=== PATIENT | male | born 1975 | race Caucasian/White ===

== ENCOUNTER 2019-06-21 10:50 | Inpatient (IN) | payer OTHER ==
[~2019-06-21] VITALS: Ht 165.1 cm; Wt 104.3 kg
[2019-06-21 14:05] VITALS: BP 145/89
--- NOTE | 2019-06-21 15:44 | NUR ---
WOUND CARE CONSULT; ROUNDING WITH DR NEELY AND NATACHA BSN. THIS 43 YEAR OLD MAN FROM A SKILLED UNIT CAME BY AMBULANCE RE; WOUNDS. HE HAS A WOUND TO THE RIGHT LAT CALF THAT IS MALODOROUS AND HAS NECROTIC TISSUE IN NEED OF DEBRIDEMENT. THERE ARE WOUNDS TO THE LEFT ISCHIAL TUBEROSITY, THE LEFT POSTERIOR THIGH AND THE LEFT SUPERIOR GLUTEAL AREA. DR NEELY IS COORDINATING A SURGICAL DEBRIDEMENT OF THE RIGHT POSTERIOR CALF. RECOMMENDATION; 1-DAKINS TO RIGHT LAT CALF 2-OPTIFOAM DRESSINGS T THE LEFT POST THIGH. 3-OPTTIFOAM DRESSING TO THELEFT I/T 4-AND OPRIFOAM TO THE LEFT SUPERIOR GLUTEAL AREA DISCUSSED WITH RN DISCUSSED WITH MALKA
[2019-06-21 16:03] LABS: ABSOLUTE NEUTROPHILS 5.6 thou/uL (1.4-8.2); BASOPHILS 0.9 % (0.0-2.0); EOSINOPHILS 2.3 % (0.0-3.0); HEMATOCRIT 27.7 % (42.0-52.0); HEMOGLOBIN 8.8 gm/dL (14.0-18.0); LYMPHOCYTES 15.2 % (24.0-44.0); MCH 27.3 pg (26.0-34.0); MCHC 31.7 g/dL (28.0-37.0); MCV 86.3 fL (80.0-100.0); MONOCYTES 8.8 % (1.0-8.0); PLATELET COUNT 179 thou/uL (150-400); POLYS 72.8 % (36.0-66.0); RBC 3.21 mil/uL (4.50-6.00); RDW 17.6 % (10.5-14.5); WBC 7.7 thou/uL (4.0-11.0)
[2019-06-21 16:17] LABS: ALBUMIN 2.5 g/dL (3.4-5.0); CALCIUM 9.1 mg/dL (8.5-10.1); CREATININE 3.7 mg/dL (0.7-1.3); POTASSIUM 4.4 mmol/L (3.5-5.1); TOTAL BILIRUBIN 0.2 mg/dL (<0.1-1.0); TOTAL PROTEIN 7.6 g/dL (6.4-8.2)
--- NOTE | 2019-06-21 19:57 | NUR ---
43 YO MALE DIRECTLY ADMITED TO 431 FROM OFFICE. PT IS A PARPLEGIC FROM SPINABIFIDA. WOUNDS TO R BUTTOCK, L INNER THIGH, R AND L LEG CHANGED AND PICTURES TAKEN. PIV LINE PLACED BY VASC TEAM TO R FA. FISTULA NOTED TO GOMEZ. UROSTOMY AND COLOSTOMY BAGS ARE INTAACT. ORIENTED PT TO ROOM/CALL LIGHT.
[2019-06-21 21:20] VITALS: BP 133/82
[2019-06-22 04:45] VITALS: BP 128/78
[2019-06-22 05:56] LABS: ABSOLUTE NEUTROPHILS 5.5 thou/uL (1.4-8.2); BASOPHILS 1.3 % (0.0-2.0); EOSINOPHILS 3.4 % (0.0-3.0); HEMATOCRIT 26.8 % (42.0-52.0); HEMOGLOBIN 8.4 gm/dL (14.0-18.0); LYMPHOCYTES 13.7 % (24.0-44.0); MCHC 31.4 g/dL (28.0-37.0); MCV 86.1 fL (80.0-100.0); MONOCYTES 7.7 % (1.0-8.0); PLATELET COUNT 170 thou/uL (150-400); POLYS 73.9 % (36.0-66.0); RBC 3.11 mil/uL (4.50-6.00); RDW 17.6 % (10.5-14.5); WBC 7.5 thou/uL (4.0-11.0)
[2019-06-22 06:04] LABS: CALCIUM 8.3 mg/dL (8.5-10.1); CREATININE 4.2 mg/dL (0.7-1.3); MAGNESIUM 1.8 mg/dL (1.8-2.4); POTASSIUM 4.5 mmol/L (3.5-5.1)
[2019-06-22 07:53] VITALS: BP 130/80
--- NOTE | 2019-06-22 07:59 | NUR ---
Assumed pt care at 1900. Pt is A/OX4,VSS. Requires max assist with transfers. Urostomy/colostomy bags changed. C/o pain to ulysses hips, medicated per EMAR with relief reported. Pt has been NPO since midnight. Resting quietly w/o distress noted will continue to monitor pt.
[2019-06-22 16:07] VITALS: BP 117/57
--- NOTE | 2019-06-22 16:18 | NUR ---
ASSESSMENT-PT LIVES IN LTC AT [facility]. PT HAS A HX OF SPINA BIFIDA AND IS WC BOUND. PT GOES TO [facility] FOR HEMODIALYSIS M- 0700 SHIFT. PT IS FOLLOWED BY WOUND CARE TEAM AT THE FACILITY. PT NEEDS ASSIST WITH ADLS. PT SAYS HIS SISTER RONEY HELPS HIM WITH HIS AFFAIRS. HE HAS ANOTHER SISTER ELMER IN [facility]. PT HAD I&D OF HIS WOUND DONE TODAY. FOLLOWING TO ASSIST WITH DC PLANNING.
[2019-06-22] MEDS ORDERED: VITAMIN C500 M2 (16:43)
[2019-06-22] MEDS ORDERED: FERROUS GLUCON324 M3 (16:44)
[2019-06-22] MEDS ORDERED: PROTONIX40 M1 (16:45)
[2019-06-22] MEDS ORDERED: RENAL-VITE TAB0.8 MG (16:46)
[2019-06-22] MEDS ORDERED: ZINC SULFATE 2220 MG (16:48)
[2019-06-22] MEDS ORDERED: RENVELA800 MG (16:50)
[2019-06-22] MEDS ORDERED: SODIUM BICARBO650 M3 (16:50)
[2019-06-22] MEDS ORDERED: TYLENOL325 MG PO (16:51)
[2019-06-22] MEDS ORDERED: CALCIUM 500 +1 EAC5 (16:54)
--- NOTE | 2019-06-22 18:45 | NUR ---
PT ASSESSED AT THIS AM. DIALYSIS THIS AM AND THEN WENT FOR WOUND DEBRIDEMENT. EATING AND DRINKING WELL. MEDS GIVEN. PAIN WELL CONTROLLED. PT TURNING HIMSELF. OSTOMY NURSE IN AND LEFT SUPPLIES.
--- NOTE | 2019-06-22 19:18 | HC ---
[place] [address] CONSULTATION Name: SEJALHILARIO III Room #: 431-P [facility] IN ..#: [id number] Admission: 06/21/19 Attend Phys: Kye Ma MD Discharge: Date of : 77 Report #: [id number] THIS REPORT FOR: //name// CC: Kye SANDS unknown DATE OF SERVICE: 06/21/2019 CHIEF COMPLAINT: Multiple pressure ulcerations. HISTORY OF PRESENT ILLNESS: This is a 43-year-old male patient with a history of spina bifida with multiple pressure ulcerations. He is a resident at [facility], was found to have an increasingly infected and foul-smelling ulceration on his right lateral lower leg, and he has been admitted for evaluation and treatment and aggressive wound care. The patient denies any pain associated with these. Denies current fever or chills. PAST MEDICAL HISTORY: Positive for history of spina bifida. He has a history of neuromuscular dysfunction and neurogenic bladder. He has functional paraplegia. He has end-stage renal disease, iron deficiency anemia and gastroesophageal reflux. SOCIAL HISTORY: He admits to occasional alcohol use. No history of smoking. ALLERGIES: To CEPHALOSPORINS, LATEX and PENICILLINS. MEDICATIONS: Include Tylenol, ondansetron, oxycodone, polyethylene glycol, sodium chloride and vancomycin. FAMILY HISTORY: Noncontributory. REVIEW OF SYSTEMS: CONSTITUTIONAL: The patient denies fever, chills or weight loss. NEUROLOGICAL: The patient has paraplegia and neurogenic bladder. ENT: The patient denies earache, nasal drainage, sore throat. CARDIOVASCULAR: The patient denies chest pain or palpitations or diaphoresis. PULMONARY: The patient denies cough or shortness of breath. GASTROINTESTINAL: The patient denies nausea, vomiting, diarrhea or abdominal pain. ORTHOPEDIC: The patient is aware of the pressure ulcerations, which we will detail below. Other systems in a 14-point review of systems are negative. PHYSICAL EXAMINATION: VITAL SIGNS: At this time include temperature 36.9, pulse 100, respiratory rate of 20, blood pressure 145/89. [address] [place] [address] CONSULTATION Name: HILARIO POST III Room #: 431-P [facility]#: [id number] Admission: 06/21/19 Attend Phys: Kye Ma MD Discharge: Date of : 77 Report #: [id number] GENERAL: This is a well-developed male patient who appears to be in minimal distress. HEENT: Head normocephalic. Nose and throat clear. NECK: Supple. LUNGS: Clear. ABDOMEN: Soft. EXTREMITIES: Examination of the pelvic region demonstrates what appears to be a stage 4 pressure ulcer in the left ischial tuberosity, is mostly sclerosed down, is a very small area that may remain open. It probes close to bone. He has stage 3 pressure ulceration of his left posterior thigh, was relatively healthy, clean, granulating and a very clean, healthy circular ulceration on his left medial lower leg. Additionally, the patient has a very small stage 3 pressure ulceration to the left superior gluteal cleft. He has a large ulceration that is linearly arranged on his right lateral lower leg. There is moderate necrotic tissue. It is foul smelling with drainage and odor. No exposed structures are palpable in the base. LABORATORY STUDIES: Include white blood cell count 7.7 with a hemoglobin of 8.8, hematocrit of 27.7. Sed rate is 128. Sodium 139, potassium 4.4, chloride 99, CO2 of 36, BUN 27, creatinine 3.7, alkaline phosphatase 209. Albumin is 2.5. CLINICAL IMPRESSION: 1. Stage 4 pressure ulceration, left ischial tuberosity, that appears to be almost closed; stage 3 pressure ulcerations, left posterior thigh, left medial lower leg and left gluteal cleft. 2. Stage 3 pressure ulceration to the right lateral lower leg. 3. Spina bifida with paraplegia and neurogenic bladder. 4. Wound infection, right lateral lower leg. 5. Moderate protein-calorie malnutrition. RECOMMENDATIONS: At this point in time, the patient was placed on empiric antibiotic therapy. He will need additional cultures to be taken at bedside today. The patient has been started on empiric vancomycin at present. We will recommend low air loss mattress with q.2 hour turning positioning, aggressive nutritional support. We will recommend a 0.25 strength Dakin's moist gauze dressing b.i.d. to the right lower leg. We will obtain surgical consultation for debridement and possible placement of a skin substitute to the right leg. All questions have been answered, and the patient is agreeable with the current plan of care. I appreciate being asked to see him in consultation. <ELECTRONICALLY SIGNED> By: Cholo Dietz MD 06/22/19 1918 [id number] [id number] Cholo Dietz MD /nt
[2019-06-22 19:50] VITALS: BP 117/66
--- NOTE | 2019-06-23 03:44 | NUR ---
PATIENT ALERT AND ORIENTED X4. HAS A COLOSTOMY AND A UROSTOMY. BOTH LOWER EXT WRAPPED. HAS A GOMEZ FISTULA WITH A GOOD BRUIT AND THRILL. C/O PAIN, MED GIVEN. SLEPT OFF AND ON DURING NIGHT.
[2019-06-23 03:45] VITALS: BP 111/61
--- NOTE | 2019-06-23 03:50 | NUR ---
PATIENT REFUSED TO BE TURNED TONIGHT.
[2019-06-23 07:15] VITALS: BP 134/87
--- NOTE | 2019-06-23 15:12 | NUR ---
ASSUMED CARE OF PT AT 0700. PT COLOSTOMY AND ILIOSTOMY WAS LEAKING. CHANGED OSTOMY BAGS AND PROVIDED SKIN CARE. CHANGED DRESSING FOR WOUND ON THE LATERAL RIGHT THIGH WITH NS, MOIST GUAZE AND KERLIX. CHANGED DRESSING ON THE LEFT LOWER LEG WITH NS AND BORDERED FOAM. PT REFUSED TO ALLOW DRESSING CHANGES FOR THE WOUNDS LOCATED ON LEFT ISCHIAL, LEFT BUTTOCK, R LATERAL LEG. PAIN MEDS GIVEN AND TOLERATED WELL. FALL PRECAUTIONS IN PLACE. BED IN LOWEST POSITION. CALL LIGHT WITHIN REACH. WILL CONTINUE TO MONITOR PT.
[2019-06-23 16:10] VITALS: BP 127/79
[2019-06-23 21:04] VITALS: BP 138/81
--- NOTE | 2019-06-24 05:39 | NUR ---
PATIENT AOX4 MAKES NEEDS KNOWN. PATIENT NON COMPLIANT WITH CARE REFUSED THIS NURSE AND DAIRY FARM MANAGER TO TURN HIM. PAIN CONTROLLED THIS SHIFT. PATIENT REFUSED DRESSING CHANGES. DRESSINGS ARE C/D/I. PATIENT HAD PERICARE AND BARRIER CREAM APPLIED X1 TONIGHT.PATIENT IN BED ASLEEP AT THIS TIME BREATHING REGULAR AND UNLABOURED.
[2019-06-24 06:15] VITALS: BP 144/95
[2019-06-24 09:30] VITALS: BP 125/72
--- NOTE | 2019-06-24 18:30 | NUR ---
PT ASSESSED AT START OF SHIFT. OSTOMY BAGS CHANGED PER PT W/ LITTLE ACCEPTANCE OF HELP FROM NURSE. PT FLAT REFUSES DRESSINGS TO BE CHANGED OR TO ALLOW STAFF TO TURN HIM. HE DID ALLOW RT LOWER LEG SURGICAL DSNG TO BE CHANGED FOR THE SURGEON TO LOOK AT THIS AFTERNOON. PT TO DIALYZE TOMORROW AND DC IN AFTERNOON PER PHYSICIAN.
[2019-06-24 19:39] VITALS: BP 148/91
[2019-06-25 05:02] VITALS: BP 150/90
[2019-06-25 05:03] VITALS: BP 150/90
--- NOTE | 2019-06-25 07:45 | NUR ---
PATIENT ALERT AND ORIENTED X4. C/O PAIN, MED GIVEN WITH GOOD RESULTS. SLEPT VERY LITTLE THIS SHIFT. WENT TO DIALYSIS THIS AM. SCHEDULED TO GO HOME TODAY AFTER DIALYSIS.
[2019-06-25] MEDS ORDERED: VANCOMYCIN1 GM/2002 IV (10:15)
[2019-06-25] MEDS ORDERED: AZACTAM 1 GM VIA1 G1 HEMODIALYS (10:20)
--- NOTE | 2019-06-25 12:07 | HC ---
[place] [address] CONSULTATION Name: SEJALHILARIO Corcoran III Room #: 431-P [facility] IN ..#: [id number] Admission: 06/21/19 Attend Phys: Kye Ma MD Discharge: Date of : 77 Report #: [id number] THIS REPORT FOR: //name// CC: Kye Ma [facility] physician/PCP DATE OF SERVICE: 06/22/2019 INFECTIOUS DISEASE CONSULTATION REASON FOR CONSULTATION: I was asked to evaluate concerning right lower extremity pressure wound infection. HISTORY OF PRESENT ILLNESS: The patient is a 43-year-old with history of spina bifida, who has had issues with multiple pressure ulcerations. He resides in a skilled nursing. He has had increased drainage from his right lateral lower leg wound. Denies any fever, chills, or sweats. He was taken to surgery today for further surgical debridement. No intraoperative or early postoperative complications. He has been placed on vancomycin. ALLERGIES: He is allergic to PENICILLINS and CEPHALOSPORINS as well as LATEX. OTHER MEDICATIONS: Have included Tylenol, ondansetron, oxycodone, polyethylene glycol. FAMILY HISTORY: Noncontributory. SOCIAL HISTORY: Nonsmoker. No significant alcohol intake. PAST MEDICAL HISTORY: Spina bifida, neuromuscular dysfunction and neurogenic bladder, colostomy, functional paraplegia, end-stage renal disease, right chest tunneled dialysis catheter, iron deficiency anemia, gastroesophageal reflux. REVIEW OF SYSTEMS: No cough or sputum production. No nausea or vomiting. Stool output has been good. Dialysis was done earlier this morning. Other 10-point review of system was negative, other than what is noted above. PHYSICAL EXAMINATION: VITAL SIGNS: He is afebrile and hemodynamically stable. GENERAL: He is alert and cooperative, in no acute distress. Moderately obese. EYES: Without scleral icterus. MOUTH: Without mucositis. NECK: Supple. LUNGS: Clear. HEART: Regular without murmur, gallop, or rub. ABDOMEN: Protuberant, nontender. Colostomy site was without erythema. Normal [address] [place] [address] CONSULTATION Name: HILARIO POST [facility] Room #: [facility] IN .R.#: [id number] Admission: 06/21/19 Attend Phys: Kye Ma MD Discharge: Date of : 77 Report #: [id number] stool output. No other masses identified. EXTREMITIES: He is paraplegic, stage 4 pressure ulcer in left ischial tuberosity, small defect still evident. Left posterior thigh clean, granulating wound, stage 3 pressure ulcer to the left superior gluteal cleft. Right lower leg postoperative wound was dressed and dry. LABORATORY STUDIES: Hemoglobin 8.8, WBC 7.7, sedimentation rate 128, creatinine 3.7, alkaline phosphatase 209. Cultures are pending. IMPRESSION: A 43-year-old with underlying spina bifida, paralysis of his lower extremities, end-stage renal disease, protein-calorie malnutrition, infected right calf pressure wound, multiple drug allergies to PENICILLIN and CEPHALOSPORINS. RECOMMENDATIONS: We will continue vancomycin and aztreonam pending culture results. Dosing will be adjusted for his renal failure. He will continue with dressing changes and offloading. I have discussed the case with Nursing in attendance. <ELECTRONICALLY SIGNED> By: Kahlil Jerry MD 06/25/19 1207 1813 0144 Kahlil Jerry MD /nt
[2019-06-25] MEDS ORDERED: CEFTRIAXON1 GM/50 M1 IVPB (15:12)
--- NOTE | 2019-06-25 16:28 | NUR ---
FAXED CLINICAL UPDATE TO [facility] SPOKE WITH ADM LIARAMYA AND SHE RECEIVED UPDATE AND NOTIFIED THAT PT IS GOING TO DISCHARGE TODAY SHE IS ABLE TO ACCEPT TODAY AND WILL ARRANGE TRANSPORT.
--- NOTE | 2019-06-25 16:58 | NUR ---
PT DISCHARGING TODAY TO [facility] FAXED DC ORDERS/SUMMARY TO FACILITY SPOKE WITH AYANA IN ADM SHE RECEIVED DC ORDERS AND ARRANGED TRANSPORT BY [facility] FOR 1900. NOTIFIED PT'S SISTER ( RONEY) OF DC AND TIME OF TRANSPORT UNIT NOTIFIED AND CHART COPY PER US. RN TO CALL REPORT TO [phone].
--- NOTE | 2019-06-25 17:08 | NUR ---
FAXED FLOW SHEETS TO [facility] AND S/W AYANA TO CONFIRM THAT THEY CAN GIVE THE PT THE IV ABX AFTER HIS DIALYSIS TREATMENT FOR 10 DOSES.
--- NOTE | 2019-06-25 20:22 | NUR ---
Assumed patient care at 0715. Patient dialized this am. His am medications were given late because of this. Patient requested and recieved Oxycodone for right lower ABD area three times during this shift. Pain medications were effective. POC followed. Patient was discharged at 1925 with transportation from [facility]. Pictures were taken of all wounds prior to discharge with great reluctance from patient. This nurse called [facility] at 2014 to no avail.
--- NOTE | 2019-06-27 10:07 | PATH ---
[facility] [address] [place] [address] PATHOLOGY RPT PROCEDURE Name: SEJAL,GOYO Corcoran III Room #: 431-P [facility] IN M.R.#: [id number] Admission: 06/21/19 Date of : 77 Discharge: 06/25/19 Report #: [id number] Path Case #: [id number] [facility] Accession Number: [id number] . 01 Material submitted: . leg - RIGHT LEG PRESSURE WOUND. Modifiers: right . 01 Clinical history: . Right leg pressure wound . 02 Diagnosis: Right leg pressure wound, debridement: - Fragments of soft tissue with extensive hemorrhage, ulceration, marked acute inflammation as well as fibrinoid degeneration. (IUV:cloth hand; 06/25/2019) MBR 06/25/2019 1455 Local . 02 Electronically signed: . Sakshi Shepherd MD, Pathologist NPI- [id number] . 01 Gross description: . The specimen is received in formalin, labeled "Goyo Blanco III, right leg pressure wound" and consists of 3 necrotic segments of ritter-brown skin and soft tissue measuring 4.0 x 2.5 x 1.5 cm. Heating Unit Installer sections are submitted in A1. (SDY; 06/23/2019) SYU/SYU 06/25/2019 1454 Local . 02 Pathologist provided ICD-10: L97.919, L98.9, S81.801A . 02 CPT . 037136 Specimen Comment: A courtesy copy of this report has been sent to Specimen Comment: [phone], . Specimen Comment: Report sent to / DR ZIMMERMAN Specimen Comment: Report sent to Performed at: [address], [place] [id number] MD Ruddy Van MD Phone: [phone] Performed at: [address] [id number] MD Sakshi Shepherd MD Phone: [phone]
--- NOTE | 2019-07-04 09:17 | HC ---
[facility] [place] [address] CONSULTATION Name: HILARIO POST Nilo STARK Room #: 431-P [facility]..#: [id number] Admission: 06/21/19 Attend Phys: Kye Ma MD Discharge: 06/25/19 Date of : 77 Report #: [id number] THIS REPORT FOR: //name// CC: Kye Ma [facility] physician/PCP REASON FOR CONSULTATION: End-stage renal disease. REASON FOR PRESENTATION: Wound issues. HISTORY OF PRESENT ILLNESS: This is a very well-known patient to us. He is a 43-year-old paraplegic who is maintained on hemodialysis every Tuesday, Tuesday and Tuesday. He suffers from thigh wounds. He visited with his wound clinic and was admitted because of a foul smelling discharge from his wounds. He tells me that he has been maintained on hemodialysis since November of this year. He is not really sure about the reason for his end-stage renal disease. He dialyzes with [facility] unit. His usual dialysis is every Tuesday, Tuesday and Tuesday. The patient is known to have paraplegia and spina bifida since he was born. He has no active dialysis related symptoms. His last dialysis was on Tuesday. I am being consulted to manage his end-stage renal disease. PAST MEDICAL HISTORY: 1. End-stage renal disease. 2. Spina bifida. 3. Pressure ulcer. 4. Status post tunneled catheter. SOCIAL HISTORY: Resides in a healthcare facility. No reported drug or alcohol abuse. MEDICATIONS: Unknown at this point pending the retrieval from his nursing unit. Inpatient medications include Tylenol, Zofran, oxycodone, vancomycin. FAMILY HISTORY: No known chronic kidney disease. REVIEW OF SYSTEMS: GENERAL: No fever or chills. CARDIOVASCULAR: No chest pain or palpitation. PULMONARY: No cough or hemoptysis. GASTROINTESTINAL: No nausea or vomiting. SKIN AND MUSCULOSKELETAL: As per the history of present illness. PHYSICAL EXAMINATION: VITAL SIGNS: Temperature 36.6, blood pressure is 130/80. HEAD AND NECK: No jugular venous distention. CHEST: No crackles. CARDIOVASCULAR: No rub. [facility] [address] [place] [address] CONSULTATION Name: SEJALHILARIO Corcoran [facility] Room #: 431-P [facility] [id number] Admission: 06/21/19 Attend Phys: Kye Ma MD Discharge: 06/25/19 Date of : 77 Report #: [id number] ABDOMEN: Ostomy bag present. LOWER EXTREMITIES: Deformed, contractures, paraplegic. LABORATORY DATA: Reviewed. White blood cell count 7.5, hemoglobin 8.4. Chemistry from today revealed a sodium of 140, BUN of 29, creatinine of 4.2. IMPRESSION AND PLAN: 1. End-stage renal disease. 2. Thigh wound. 3. Paraplegia. 4. We will continue with the usual dialysis arrangement every Tuesday, Tuesday and Tuesday. 5. Wound care. 6. Resume his outpatient medications. <ELECTRONICALLY SIGNED> By: Lakhwinder Avendaño MD 07/04/1917 0814 1839 Lakhwinder Avendaño MD /nt
== END 2019-06-25 19:25 | DRG 570 ==
LOC: 4E 12:58
PROVIDERS: Nurse Practitioner; ADMIT Hospitalist
DX: L89.324 Pressure ulcer of left buttock, stage 4 (principal); N18.6 End stage renal disease; E44.0 Moderate protein-calorie malnutrition; G82.20 Paraplegia, unspecified; L89.894 Pressure ulcer of other site, stage 4; Q05.9 Spina bifida, unspecified; K21.9 Gastro-esophageal reflux disease without esophagitis; F17.210 Nicotine dependence, cigarettes, uncomplicated; N31.9 Neuromuscular dysfunction of bladder, unspecified; B96.4 Proteus (mirabilis) (morganii) as the cause of diseases classified elsewhere; Z88.0 Allergy status to penicillin; Z88.8 Allergy status to other drugs, medicaments and biological substances; Z79.899 Other long term (current) drug therapy; Z91.040 Latex allergy status; Z99.2 Dependence on renal dialysis; Z93.3 Colostomy status; Z68.38 Body mass index [BMI] 38.0-38.9, adult
CPT/HCPCS: 10783; 32100; 50010; 50101; 50386; 50403; 57119; 57120; 62110; 62900; 70005

== ENCOUNTER 2019-09-13 13:55 | Inpatient (IN) | payer OTHER ==
[~2019-09-13] VITALS: Ht 152.4 cm; Wt 99.8 kg
[~2019-09-13 13:55] MED LIST: AZACTAM 1 GM VIA1 G1 HEMODIALYS; CALCIUM 500 +1 EAC5; CEFTRIAXON1 GM/50 M1 IVPB; FERROUS GLUCON324 M3; PROTONIX40 M1; RENAL-VITE TAB0.8 MG; RENVELA800 MG; SODIUM BICARBO650 M3; TYLENOL325 MG PO; VANCOMYCIN1 GM/2002 IV; VITAMIN C500 M2; ZINC SULFATE 2220 MG
[2019-09-13] MEDS ORDERED: PEPCID20 MG PO (17:19)
[2019-09-13] MEDS ORDERED: MELATONIN3 M2 PO (17:20)
[2019-09-13] MEDS ORDERED: MELATONIN3 M1 PO (17:20)
[2019-09-13 17:52] LABS: HEMATOCRIT 30.5 % (42.0-52.0); HEMOGLOBIN 9.3 gm/dL (14.0-18.0); MCH 24.9 pg (26.0-34.0); MCHC 30.3 g/dL (28.0-37.0); MCV 82.2 fL (80.0-100.0); RBC 3.72 mil/uL (4.50-6.00); RDW 19.6 % (10.5-14.5)
[2019-09-13 17:58] LABS: CALCIUM 9.6 mg/dL (8.5-10.1); CREATININE 4.1 mg/dL (0.7-1.3); POTASSIUM 3.9 mmol/L (3.5-5.1)
[2019-09-13 18:03] LABS: INR 1.1; PROTIME 11.1 Seconds (9.3-11.4)
[2019-09-13 18:04] LABS: ALBUMIN 2.4 g/dL (3.4-5.0); TOTAL BILIRUBIN 0.3 mg/dL (<0.1-1.0); TOTAL PROTEIN 8.3 g/dL (6.4-8.2)
[2019-09-13 18:29] LABS: TSH 2.011 uIU/mL (0.358-3.740)
[2019-09-13 18:58] LABS: FOLIC ACID 28.8 ng/mL (8.6-58.9)
--- NOTE | 2019-09-13 19:16 | NUR ---
ASSUMED CARE AT 1700, SHIFT ASSESSMENT DONE, ADMISSION DONE, VSS. WOUND PICTURES TAKEN. CONSULTS CALLED. REPORT GIVEN TO NIGHT NURSE. IV TEAM CALLED TO PLACE A PIV. WILL CONTINUE TO ASSESS AND ASSIST WITH ADLs NEEDED.
[2019-09-13 20:00] VITALS: BP 127/76
[2019-09-13 21:21] LABS: CHOLESTEROL 74 mg/dL (<200); HDL CHOLESTEROL 26 mg/dL (>40); LDL CHOLESTEROL 30 mg/dL (<100); TC:HDL 2.8 Ratio (Not establshd); TRIGLYCERIDE 93 mg/dL (<150); VLDL 19 mg/dL (<40)
[2019-09-13 22:03] LABS: SERUM ASSESSMENT Clear
[2019-09-14 02:30] VITALS: BP 124/77
--- NOTE | 2019-09-14 04:45 | NUR ---
PT CARE ASSUMED AT 1915 .PT IS A/O X4.PT REFUSED BLOOD SUGAR BEING CHECKED THAT HE IS NOT DIABETES AND REFUSED ASSESSMENTS THAT HE IS FINE AND DIDNT WANT TO BE BOTHERED.PT NPO FROM MIDNIGHT FOR I$D TODAY AT ABOUT 11:00.PT DENIED PAIN.PT HAS A UROSTOMY AND COLOSTOMY BAG.CONTINUE TO MONITOR POC
[2019-09-14 05:31] LABS: HEMATOCRIT 27.7 % (42.0-52.0); HEMOGLOBIN 8.4 gm/dL (14.0-18.0); MCH 25.2 pg (26.0-34.0); MCHC 30.2 g/dL (28.0-37.0); MCV 83.2 fL (80.0-100.0); RBC 3.33 mil/uL (4.50-6.00); RDW 19.5 % (10.5-14.5); WBC 8.8 thou/uL (4.0-11.0)
[2019-09-14 05:45] LABS: ALBUMIN 2.1 g/dL (3.4-5.0); CALCIUM 8.1 mg/dL (8.5-10.1); CREATININE 4.4 mg/dL (0.7-1.3); PHOSPHORUS 4.2 mg/dL (2.5-4.9); POTASSIUM 4.2 mmol/L (3.5-5.1)
[2019-09-14 05:57] LABS: BACTERIA-REFLEX >30 Many /HPF (None Seen); CASTS None Seen /LPF (None Seen); CRYSTALS None Seen /LPF (None Seen); MUCUS 4-6 Moderate strn/LPF (None Seen); SQUAMOUS None Seen /LPF (0-3); URINE WBC-REFLEX >25 Many /HPF (0-5)
[2019-09-14 05:58] LABS: URINE CLARITY CLOUDY; URINE COLOR YELLOW
[2019-09-14 06:05] LABS: URINE BILIRUBIN NEGATIVE (Negative); URINE BLOOD 1+ (Negative); URINE GLUCOSE-RANDOM* NEGATIVE (Negative); URINE KETONES NEGATIVE (Negative); URINE LEUKOCYTES-REFLEX 3+ (Negative); URINE NITRITE-REFLEX NEGATIVE (Negative); URINE PROTEIN (DIPSTICK) 3+ (Negative); URINE SPECIFIC GRAVITY 1.015 (1.005-1.035); URINE UROBILINOGEN 0.2 E.U./dl (0.2-1.0)
[2019-09-14 08:40] VITALS: BP 122/76
[2019-09-14 10:19] VITALS: BP 122/76
--- NOTE | 2019-09-14 10:32 | NUR ---
PT CARE ASSUMED AT 0700. A&Ox4. PT IS HAVING DIALYSIS TODAY AND AFTERWARDS DEBREMENT. NPO. REPORT GIVEN TO PREOP NURSE. IV FLUIDS DISCONTINUED. IV PATENT, WITH NO REDNESS OR SWELLING. FISTULA THRILL AND BRUIT HEARD AND PATENT. DIALYSIS NURSE IS IN THE ROOM. PT. STATES NO PAIN. OSTOMY AND COLOSTOMY ARE BOTH PATENT AND RUNNING WELL. WILL CALL PREOP WHEN DONE DIALYSING.
--- NOTE | 2019-09-14 13:25 | NUR ---
OSTOMY CARE called to see pt as both urostomy and colostomy pouches leaking, both stomas pinkish/red viable budded, all peristomal skin intact, 2 piece cut to fit asher appliances applied to urostomy stoma and connected to dep drainage, cut to fit 2 piece appliance to colostomy stoma, adapt rings applied under both wafers, supplies left at bs, event staff informed, pt alert and cooperative, will cont to follow prn
--- NOTE | 2019-09-14 13:34 | NUR ---
INITIAL ASSESSMENT: Pt evaluated for d/c planning needs. Reviewed chart and spoke with nurse and pt. Pt is a intermediate resident at [facility]. Pt has dialysis M-W- at [facility]. He is followed by wound care at facility. Will remain available to assist as needed.
[2019-09-14 20:00] VITALS: BP 125/63
[2019-09-15 03:47] VITALS: BP 111/63
[2019-09-15 04:36] LABS: HEMATOCRIT 27.3 % (42.0-52.0); HEMOGLOBIN 8.3 gm/dL (14.0-18.0); MCH 25.6 pg (26.0-34.0); MCHC 30.6 g/dL (28.0-37.0); MCV 83.7 fL (80.0-100.0); RBC 3.26 mil/uL (4.50-6.00); RDW 19.7 % (10.5-14.5); WBC 9.9 thou/uL (4.0-11.0)
[2019-09-15 04:50] LABS: CALCIUM 8.8 mg/dL (8.5-10.1); CREATININE 3.6 mg/dL (0.7-1.3)
[2019-09-15 04:57] LABS: POTASSIUM 5.2 mmol/L (3.5-5.1)
--- NOTE | 2019-09-15 07:46 | NUR ---
ASSESSMENT COMPLETED.PT DENIED PAIN THIS SHIFT.PT REF BG MONITORING,HE STATED THAT HE IS NOT DIABETIC.COLOSTOMY AND UROSTOMY IN PLACE AND INTACT.MIN BM AND URINE NOTED IN BAGS.DRSG ON HIS R AND L ISCHIAL TUBEROSITY C/D/I.PT ABLE TO MOVE HIMSELF IN BED.IV ABX ADMINISTERED ORDERED.LOW AIR LOSS MATTRESS IN PLACE.REPORT TO AM NURSE TO FOLLOW UP ON.
[2019-09-15 08:06] VITALS: BP 114/61
--- NOTE | 2019-09-15 12:11 | NUR ---
OSTOMY CARE according to nsg staff need for urine specimen, pt refused to allow this [facility] nurse to change urostomy pouch in order to get a clean specimen, states "hurts too much to change pouch" pt wanted specimen to be taken from current pouch, informed pt pouch has been on +24 hours and this would not be a clean accurate specimen, pt still refused, medical staff director notified and supplies left in room if pt agrees to pouch change
[2019-09-15 13:27] VITALS: BP 114/61
--- NOTE | 2019-09-15 13:35 | NUR ---
PT. CARE ASSUMED AT 0700. A&Ox4. PT REFUSES TO HAVE HIS COLOSTOMY OR UROSTOMY REPLACED. PT. IV INFILTRATED AND HAD A NEW ONE PLACED WITH US AND IV TEAM. PT RECEIVED ANTIBIOTICS. PT IS REPEATEDLY ASKING TO HAVE HIS RENAL AND DIABETIC DIET DC'D AND WANTS A REGULAR DIET. PT. CONTINUES TO REFUSE BLOOD GLUCOSE MONITORING AND INSULIN. PT VITALS ARE STABLE. PT REFUSED DRESSING CHANGE ON DEBREAMENT SITE FROM YESTERDAY. BED IN LOW POSITION, LOCKED WITH BED ALARM ON. CALL LIGHT IN REACH.
[2019-09-15 17:54] VITALS: BP 104/65
[2019-09-15 19:40] VITALS: BP 106/65
--- NOTE | 2019-09-16 00:42 | NUR ---
ASSUMED CARE FROM DAY SHIFT PT EATING PIZZA AND BUFFLO WINGS AND DRINKING SODA, PT TAKING HIS OWN GLUCOSE AND REFUSING TO FOLLOW OUR DOCTOR SLIDING SCALE, PT REQUEST HIS OWN DOSAGE. PT VERY NON COMPLIANT WITH CARE THAT DOCTOR PRESCRIBE.
--- NOTE | 2019-09-16 01:16 | NUR ---
ASSUMED CARE FROM PREVIOUS SHIFT ASSESSENT COMPLETED PT REFUSED DRESSING TO BE CHANGED AND REFUSED TO TURN AFTER MEDICATION GIVEN PT TURN TO SIDE , DRESSING APPEARS TO BE DRY AND INTACT. PT REQUESTING PAIN MEDICATION.
[2019-09-16 08:23] VITALS: BP 107/59
--- NOTE | 2019-09-16 12:48 | NUR ---
PT CARE ASSUMED AT 0700. A&Ox4. PT RECEIVED ANTIBIOTICS PER IV. REQUESTED PAIN MEDICATION FOR "KIDNEY PAIN". VITALS STABLE. PT REFUSED DRESSING CHANGE ON DEBREAMENT SITES. PT. DID LET ME EMPTY HIS COLOSTOMY SITE. PT IV IS PAENT, FLUSHES AND HAS NO REDNESS OR SWELLING. PT REFUSES ALL ACCU CHECKS. INFORMED DR. HERNANDEZ OF THIS AND I RECEIVED A VERBAL ORDER TO DC THAT ORDER. PT. HAS BEEN SLEEPING MOST OF THE DAY AND REFUSES ALL CARE PERTAINING TO THE CLEANLINESS OF HIMSELF. PT. STATED HE WOULD LIKE TO GO HOME. NEPHROLOGY IS AWARE OF THIS. PT ORDERS IN FOR DIALYSIS [place]. PT RECEIVES DIALYSIS M,W,F
[2019-09-16 16:57] VITALS: BP 105/61
[2019-09-16 19:41] VITALS: BP 136/73
--- NOTE | 2019-09-17 02:54 | NUR ---
ASSUMED CARE FROM DAY SHIFT PT SITTING UP IN BED , DRESSING CHANGED TO BUTTOCK, FOUL SMELLING ORDOR NOTED , WITH BROWNISH DRAINAGE. PT TOLERATED WELL AFTER NORCO GIVEN. DISCUSS CURRENT PLAN OF CARE , VERBALIZED UNDERSTANDING AND AGREEABLE. PT CHANGES UROSTOMY BAG. PT RESTED WELL THROUGHOUT HOURLY ROUNDS, WILL REPORT CHANGES AND ABNORMAL FINDINGS.
[2019-09-17 17:08] VITALS: BP 136/85
[2019-09-17 17:10] LABS: HEPATITIS B SURFACE AG Negative (Negative)
--- NOTE | 2019-09-17 18:30 | NUR ---
PT ASSESSED AT START OF SHIFT. HAD DISALYSIS THIS AM W/ 3 LITERS TAKEN OFF. PT EATING WELL. COLOSTOMY W/ LARGE AMT SOFT, MUSHY BROWN STOOL. SUNG W/ THICK MILKY YELLOW URINE. PT REFUSED TO ALLOW FOR TURNS OR BATHING. WOUND CARE HERE THIS AFTERNOON. PAIN MEDS TWICE W/ GOOD RELIEF.
--- NOTE | 2019-09-17 19:05 | HC ---
[facility] [place] [address] CONSULTATION Name: HILARIO POST III Room #: 440-P [facility] IN ..#: [id number] Admission: 09/13/19 Attend Phys: Deniz Mensah MD Discharge: Date of : 77 Report #: [id number] THIS REPORT FOR: //name// CC: SHAVON physician/PCP Deniz Mensah DATE OF SERVICE: 09/14/2019 CHIEF COMPLAINT: Ischial and right lower extremity pressure ulcerations. HISTORY OF PRESENT ILLNESS: This is a 44-year-old male patient with whom I am familiar from previous hospitalization. He is a long-term resident at the [facility]. He has developed increasing breakdown and drainage and odor with regard to his ischial pressure ulcerations, which are now bilateral. He has a history of spina bifida and resultant paraplegia. He is wheelchair bound and has been very noncompliant. He spends excessive time sitting up in his chair. He will not offload. He will not even maintain basic hygiene on his own. He has a colostomy and a urostomy. These bags frequently leak. He is frequently found covered in fecal material and it is believed that he is using his hands to loosen the bags and there is frequent contamination of his wounds. It has apparently been very challenging to provide care for his wounds, once again, due to his noncompliance with recommended cares. PAST MEDICAL HISTORY: Significant, once again, for paraplegia secondary to spina bifida. He has a neuromuscular dysfunction and neurogenic bladder status post urostomy placement as well as status post colostomy placement. He has end-stage renal disease, iron deficiency anemia and gastroesophageal reflux. SOCIAL HISTORY: The patient uses chewing tobacco daily as well as a current smoker. Admits to occasional alcohol use, never recreational drug use. FAMILY HISTORY: Noncontributory. MEDICATIONS: Include vitamin C, ferrous gluconate, pantoprazole, zinc sulfate, sodium bicarbonate, Renvela, Tylenol, Os-Ponce, Pepcid, melatonin as well as ceftriaxone. ALLERGIES: To CEPHALOSPORINS, LATEX and PENICILLIN. REVIEW OF SYSTEMS: Very limited. The patient does not answer most questions. He is lying in his bed midday with a blanket over his head stating that he was wishing to get some sleep, although he is cooperative for us to examine his wounds, so a 14-point review of systems is attempted, is not obtainable other than that mentioned in history of present illness. PHYSICAL EXAMINATION: [facility] [address] [place] [address] CONSULTATION Name: SEJALHILARIO Corcoran III Room #: 440-P [facility]#: [id number] Admission: 09/13/19 Attend Phys: Deniz Mensah MD Discharge: Date of : 77 Report #: [id number] VITAL SIGNS: At this time include temperature 37.3, pulse 99, respiratory rate 18, blood pressure 122/76. GENERAL: This is a chronically ill-appearing male patient who appears to be in no obvious distress. HEENT: Head normocephalic. NECK: Supple. LUNGS: Clear. HEART: Regular rate and rhythm. ABDOMEN: Soft and bowel sounds are diminished. There is a colostomy in place. The bag is not entirely sealed and there is fecal material across his abdominal wall. Urostomy bag is in place on the left side. SKIN: Pelvic region demonstrates stage 4 pressure ulcers to both ischial tuberosities. They are extraordinarily foul smelling with necrotic material present. Bone can be palpated in the deep base. The patient has a stage 3 pressure ulceration to his right lateral lower leg. This was present on previous admission. It also has some fecal contamination present. LABORATORY DATA: Include white blood cell count 8.8 with a hemoglobin of 8.4. Sodium 138, potassium 4.2, chloride 99, CO2 of 28, BUN 31, creatinine 4.4, calcium is 3.1 and albumin is markedly low at 2.1. CLINICAL IMPRESSION: 1. Stage 4 pressure ulcerations, bilateral ischial tuberosities. 2. Paraplegia secondary to spina bifida. 3. Status post colostomy and urostomy. 4. Medical noncompliance. 5. Stage 3 pressure ulceration of the right lower leg. RECOMMENDATION: At this point in time. Surgery has been consulted for aggressive surgical debridement of the ischial ulcerations. RECOMMENDATIONS: We will recommend a quarter-strength Dakin's moist gauze to the leg and both ischial ulcers. He would theoretically benefit from a wound VAC, but I am worried that his noncompliance would interfere with utilizing negative pressure wound therapy. He will need aggressive nutritional support, and I think it is extremely unlikely that these wounds will ever heal spontaneously, once again, due to his noncompliance and severe malnutrition and fecal contamination. Additionally, he would not be an appropriate flap candidate as I do not think he is able or willing to comply with offloading following a flap surgery. I appreciate being asked to see the patient in consultation. <ELECTRONICALLY SIGNED> By: Cholo Dietz MD 09/17/19 [id number] Cholo Dietz MD /nt
[2019-09-17 20:10] VITALS: BP 115/71
[2019-09-18 02:30] VITALS: BP 117/72
--- NOTE | 2019-09-18 04:15 | NUR ---
ASSUMED CARE FROM DAY SHIFT PT AWAKE WATCHING TV NO CONCERNS VOICED , APPROACHED PT ABOUT TAKING A BED BATH PT REFUSED ALSO REFUSED TO BED TURNED, AND REPOSITION. PT WAS ABLE TO LET FRESH WORK WRAPPER LAYER SEE DRESSING INTACT ON BUTTOCK., NORCO GIVEN FOR PAIN PT REQUEST AND GIVEN PRESCRIBED. PT REMAINS AWAKE MAJORITY OF THE BIBLICAL STUDIES PROFESSOR, WILL CONITNUE WITH CURRENT PLAN TO CARE.
[2019-09-18 08:12] VITALS: BP 132/78
[2019-09-18] MEDS ORDERED: FLAGYL500 M1 PO (09:11)
--- NOTE | 2019-09-18 10:31 | O ---
[facility] [place] [address] OPERATIVE REPORT Name: HILARIO POST III Room #: 440-P [facility] IN ..#: [id number] Admission: 09/13/19 Attend Phys: Deniz Mensah MD Discharge: Date of : 77 Report #: [id number] THIS REPORT FOR: //name// CC: SHAVON physician/PCP Deniz Mensah DATE OF SERVICE: 09/14/2019 PROCEDURES PERFORMED: 1. Sharp excisional debridement of right ischial tuberosity wound. 2. Sharp excisional debridement of left ischial tuberosity wound. 3. Revisional debridement of right lower extremity wound. PREOPERATIVE DIAGNOSES: 1. Right ischial tuberosity wound. 2. Left ischial tuberosity wound. 3. Right lower extremity wound. POSTOPERATIVE DIAGNOSES: 1. Right ischial tuberosity wound. 2. Left ischial tuberosity wound. 3. Right lower extremity wound. SURGEON: Dr. Starkey. AUTOMATIC GLOVE TURNER AND FORMER: None. ANESTHETIC: General. ESTIMATED BLOOD LOSS: 50 mL. URINE OUTPUT: Not measured. COMPLICATIONS: None. FINDINGS: 1. Right leg pressure wound, 10 x 3 cm. 2. Right ischial tuberosity wound, 4 x 4 x 3 cm deep. 3. Left ischial tuberosity wound, 21 cm x 5 cm. SPECIMENS: Right ischial tuberosity swab sent for culture and Gram stain. INDICATIONS FOR PROCEDURE: This is a very pleasant 44-year-old gentleman with spina bifida, who has chronic pressure ulcers. The patient has developed severe necrotic foul smelling right ischial tuberosity wound and he was hospitalized for this. [facility] [address] [place] [address] OPERATIVE REPORT Name: HILARIO POST III Room #: 440-P [facility] IN [facility]#: [id number] Admission: 09/13/19 Attend Phys: Deniz Mensah MD Discharge: Date of : 77 Report #: [id number] DESCRIPTION OF PROCEDURE: After informed consent was obtained, the patient was taken to the operating room and placed in the supine position. General anesthesia was induced. Preprocedure antibiotics were administered already. He was then transferred to the prone position. His entire bilateral ischial tuberosities and right leg were prepped and draped in the usual sterile fashion. A timeout was performed. His right leg was curetted to remove the clotted blood and dried necrotic tissue on the wound. This was healthy and well granulated underneath. Hemostasis was obtained. Next, his left ischial tuberosity wound was curetted. There was necrotic tissue that was excised using electrocautery. Hemostasis was obtained and irrigated. His right ischial tuberosity wound, which was the main reason he was then debrided. He had a necrotic wound bed. The wound bed was excised using electrocautery. Necrotic tissue was removed entirely. A curette was applied to remove all necrotic tissue. Hemostasis was obtained. It was then irrigated out with copious amount of warm irrigation. All wound beds were packed with Dakin-soaked solution. The patient tolerated the procedure well. There were no adverse events throughout the course of procedure. <ELECTRONICALLY SIGNED> By: Angus Starkey MD 09/18/19 1031 1806 [id number] Angus Starkey MD /nt
[2019-09-18] MEDS ORDERED: NYSTATIN100000 UNI SW&SWALLOW (10:35)
--- NOTE | 2019-09-18 10:35 | NUR ---
PT DISCHARGING TODAY BACK TO [facility] FAXED DC ORDERS/SUMMARY TO FACILITY SPOKE WITH MARÍA IN ADM SHE RECEIVED DC ORDERS AND ARRANGED TRANSPORT BY [facility] FOR 1300 TODAY. NOTIFIED PT'S SISTER (MARÍA) OF DC AND TIME OF TRANSPORT. UNIT NOTIFIED AND CHART COPY PER US RN TO CALL REPORT TO [phone].
[2019-09-18 11:02] VITALS: BP 132/78
--- NOTE | 2019-09-18 12:29 | NUR ---
Nutrition: Seen for follow up. Pt had dialysis yesterday (3L off per notes), getting another dialysis session this AM. Wound care continues to see (bilateral IT wounds indicated). Remains on a renal diet. No meal intakes being recorded in EMR, but latest RN notes 09/[address] RD visited at breakfast and observed 100% completed plate including all of egg portion for good protein intake. Pt not using Zhao, Beneprotein supplements on trays- will discontinue due to ongoing accumulation/waste. Not interested in talking, resting head on pillow on lap in bed during HD. Phos WNL at 4.2 per last labs 09/14, K+ high at 5.2 per 09/15. Recommend recheck. Accuchecks stopped d/t pt refusal. Given continued need for restrictive renal diet, high po/protein intake, and no need for added oral supplements d/t morbid obesity, will change to low nutrition risk and continue to follow for changes.
--- NOTE | 2019-09-19 07:32 | HC ---
[facility] [place] [place] [address] CONSULTATION Name: HILARIO POST III Room #: 440-P [facility]..#: [id number] Admission: 09/13/19 Attend Phys: Deniz Mensah MD Discharge: 09/18/19 Date of : 77 Report #: [id number] THIS REPORT FOR: //name// CC: SHAVON physician/PCP Deniz Mensah DATE OF SERVICE: 09/14/2019 REASON FOR CONSULTATION: End-stage renal disease. HISTORY OF PRESENT ILLNESS: This is a very well-known patient to me. He is an end-stage renal disease dialysis patient, maintained on hemodialysis every Tuesday, Tuesday and Tuesday with another facility and another group. He is known to have spina bifida with paraplegia, status post suprapubic catheter for neurogenic bladder, status post colostomy. It looks like that he had some issues with the ongoing wounds and visited with his Wound Care Clinic yesterday and was found to have an increased foul smelling discharge and was admitted for further evaluation and management. The patient denies any fever or chills. He is supposed to be dialyzing today. Wound Care team has been following the patient. There is a plan to take the patient to [place] for a debridement of his wounds today. Infectious Disease doctor has been consulted regarding his wounds. PAST MEDICAL HISTORY: Extensive and includes the followin. End-stage renal disease, maintained on hemodialysis every Tuesday, Tuesday and Leonel. 2. Spina bifida. 3. Recurrent decubitus ulcers. 4. Paraplegia. 5. Recurrent admissions for ongoing wound issues. 6. Status post suprapubic catheter. 7. Status post colostomy. 8. Left-sided AV graft. 9. Anemia. MEDICATIONS: Currently, the patient is maintained on; 1. Acetaminophen. 2. Zinc sulfate. 3. Renvela. 4. Famotidine. 5. Folic acid. 6. Ascorbic acid. ALLERGIES: PENICILLIN and CEPHALOSPORIN. FAMILY HISTORY: Significant for diabetes and hypertension. [facility] [place] [place] [address] [place] [address] CONSULTATION Name: HILARIO POST [facility] Room #: [address] [place] [address].#: [id number] Admission: 09/13/19 Attend Phys: Deniz Mensah MD Discharge: 09/18/19 Date of : 77 Report #: [id number] SOCIAL HISTORY: [facility]. No reported drug or alcohol abuse. PHYSICAL EXAMINATION: GENERAL: He is alert, oriented. VITAL SIGNS: Temperature is 37.3, blood pressure is 124/77. HEAD AND NECK: No jugular venous distention. CHEST: Decreased air entry bilaterally. CARDIOVASCULAR: Distant S1, S2. ABDOMEN: Morbid obesity with suprapubic catheter, colostomy. LOWER EXTREMITIES: Contracture deformities with wounds on the right lateral aspect of his right leg. There is +2 edema. SKIN: Ischial area is not examined. LABORATORY VALUES: Reviewed. Hemoglobin is 8.4. Sodium is 138, BUN is 31, creatinine is 4.4. ASSESSMENT, IMPRESSION AND PLAN: 1. End-stage renal disease. 2. Extensive lower extremity and ischial wounds. 3. Paraplegia. 4. Suprapubic catheter. 5. Anemia. 6. We will arrange for the patient to have his usual hemodialysis. Discontinue IV fluid. 7. Appropriate antibiotic initiated. 8. Wound care. 9. Resume his outpatient home medications. <ELECTRONICALLY SIGNED> By: Lakhwinder Avendaño MD 09/19/19 0732 0858 0928 Lakhwinder Avendaño MD /nt
== END 2019-09-18 12:59 | DRG 853 ==
LOC: 4S 13:55
PROVIDERS: Hospitalist; Internal Medicine; ADMIT Hospitalist
PROC: 5A1D70Z Performance of Urinary Filtration, Intermittent, Less than 6 Hours Per Day (ICD-10-PCS; principal; 2019-09-14)
PROC: 0JBN0ZZ Excision of Right Lower Leg Subcutaneous Tissue and Fascia, Open Approach (ICD-10-PCS; principal; 2019-09-14)
PROC: 0JB90ZZ Excision of Buttock Subcutaneous Tissue and Fascia, Open Approach (ICD-10-PCS; principal; 2019-09-14)
PROC: 5A1D70Z Performance of Urinary Filtration, Intermittent, Less than 6 Hours Per Day (ICD-10-PCS; 2019-09-17)
PROC: 5A1D70Z Performance of Urinary Filtration, Intermittent, Less than 6 Hours Per Day (ICD-10-PCS; 2019-09-18)
DX: A41.9 Sepsis, unspecified organism (principal); L89.513 Pressure ulcer of right ankle, stage 3; L89.324 Pressure ulcer of left buttock, stage 4; L89.314 Pressure ulcer of right buttock, stage 4; N18.6 End stage renal disease; E43 Unspecified severe protein-calorie malnutrition; G82.20 Paraplegia, unspecified; Z68.41 Body mass index [BMI] 40.0-44.9, adult; E66.9 Obesity, unspecified; K21.9 Gastro-esophageal reflux disease without esophagitis; D63.8 Anemia in other chronic diseases classified elsewhere; N31.9 Neuromuscular dysfunction of bladder, unspecified; F17.200 Nicotine dependence, unspecified, uncomplicated; Z99.2 Dependence on renal dialysis; Q05.9 Spina bifida, unspecified; Z93.3 Colostomy status; Z79.899 Other long term (current) drug therapy; Z88.1 Allergy status to other antibiotic agents; Z88.0 Allergy status to penicillin; Z88.8 Allergy status to other drugs, medicaments and biological substances; Z83.3 Family history of diabetes mellitus; Z82.49 Family history of ischemic heart disease and other diseases of the circulatory system; Z99.3 Dependence on wheelchair; Z93.50 Unspecified cystostomy status; Z91.14 Patient's other noncompliance with medication regimen
CPT/HCPCS: 10102; 32100; 50010; 50101; 50386; 50403; 62110; 62900; 65131; 70005

== ENCOUNTER 2019-10-18 16:14 | Inpatient (IN) | payer OTHER ==
[~2019-10-18 16:14] MED LIST changes: +FLAGYL500 M1 PO; +MELATONIN3 M1 PO; +MELATONIN3 M2 PO; +NYSTATIN100000 UNI SW&SWALLOW; +PEPCID20 MG PO
--- NOTE | 2019-10-18 18:46 | NUR ---
PT ARRIVED ON UNIT AT 1805 CAME FROM [facility]. ARRIVED [facility] REPORT FROM [facility]. PT DIAYLSIS M, W, F, HAS DX OF SPINA BIFA END STAGE RENAL. HAS COLOSTOMY AND UROSTOMY SELF CARE. CALLED DR NÚÑEZ WHO CALLED DR ORTEGA WHO IS HERE ON UNIT AND WROTE ORDERS.
[2019-10-18 19:58] LABS: HEMATOCRIT 28.4 % (42.0-52.0); HEMOGLOBIN 8.6 gm/dL (14.0-18.0); MCH 26.8 pg (26.0-34.0); MCHC 30.1 g/dL (28.0-37.0); MCV 89.1 fL (80.0-100.0); RBC 3.19 mil/uL (4.50-6.00); RDW 20.5 % (10.5-14.5); WBC 18.4 thou/uL (4.0-11.0)
[2019-10-18 20:13] LABS: CALCIUM 8.8 mg/dL (8.5-10.1); CREATININE 5.4 mg/dL (0.7-1.3); POTASSIUM 5.2 mmol/L (3.5-5.1)
[2019-10-18 20:20] VITALS: BP 112/68
[2019-10-18 20:40] VITALS: BP 178/98
--- NOTE | 2019-10-19 00:28 | NUR ---
ADMISSION ASSESSMENT COMPLETED. PT WITH EXTENSIVE WOUND TO BOTH BUTTOCKS. WOUND PICTURES TAKEN. UROSTOMY BAG ALSO CHANGED, SOME DRY BLOOD NOTED BUT SOURCE NOT IDENTIFIED. COLOSTOMY WITH GOOD OUTPUT. PT REFUSED FOR COLOSTOMY TO BE CHANGED. PT EATING AND DRINKING WELL. AFEBRILE. BODY ODOR NOTED. PT REFUSES TO BE CLEANED UP. CLEAN BEDDING AND GOWN PROVIDED.PT REFUSED ACCUCHECK EVEN AFTER EDUCATION WAS PROVIDED.PT IS NON COMPLIAANT GENERALLY.WILL CONTINUE WITH POC TILL EOS.CALL LIGHT WITHIN REACH.
[2019-10-19 05:30] VITALS: BP 109/70
[2019-10-19 09:09] VITALS: BP 122/66
--- NOTE | 2019-10-19 14:04 | NUR ---
Assess due to notification of wounds. Hx spina bifida, ESRD, paraplegia. On dialysis at time of visit. Grove pulled over head and pt not wanting to participate much in conversation. Stated "yes" to good appetite and stated "no" to identifying food preferences or need for supplement. Wt has been as high as ~225 lb however issues with edema in past. Current wt 206 lb. Has bilateral IT wounds and right extremity wound. Wound care consult pending. Noncompliant with some of medical care. On zinc sulfate, wound drainage. Will follow intake trends. Encourage high protein intake. Low nutrition risk
--- NOTE | 2019-10-19 15:37 | NUR ---
PT ADMITTED RELATED TO NON HEALING DECUB ULCER. CM REVIEWED CHART AND SPOKE WITH CARE TEAM. CM MET WITH PT AT BEDSIDE THIS DAY. PT IS A&O X4. CM ROLE INTRODCUED. PT INDICATED HE LIVES IN LTC OVER AT [facility] [place]. 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 PT INDICATED HE DOES DIALYSIS AT [facility] M-W- 0700 SHIFT. PT INDICATED HE PLANS TO RETURN TO [facility] ONCE MEDICALLY STABLE. CM TO FOLLOW INDICATED WITH DC PLANNING.
[2019-10-19 17:07] VITALS: BP 101/55
[2019-10-19 19:30] VITALS: BP 106/64
--- NOTE | 2019-10-19 20:10 | NUR ---
ASSUMED CARE OF PT AT 0715. PT IS A&OX4 AND VITAL SIGNS ARE STABLE. PT REFUSED ACCU CHECKS, DRESSING CHANGES, TURNS, AND REFUSED TO FULLY PARTICIPATE IN ASSESSMENT OF SKIN. PT REFUSED TO ALLOW THIS NURSE TO ASSESS OR PROVIDED DRESSING CHANGES TO WOUNDS ON BUTTOCKS AND LOWER EXTREMITIES. PT EDUCATED ABOUT POTENTIAL COMPLICATIONS DUE TO REFUSAL OF TREATMENTS. PT COMMUNICATES UNDERSTANDING AND CONTINUES TO REFUSE AT THIS TIME. PT REPORTS PAIN TO BACK 5/10, MANAGED WITH PO PAIN MEDICATIONS. ORDERS FOR DIALYSIS THIS SHIFT, TRANSPORTED TO DIALYSIS ROOM FOR TREATMENT. FALL PRECAUTIONS IN PLACE, HOURLY ROUNDING COMPLETED, NURSING WILL CONTINUE TO MONITOR.
[2019-10-20 03:35] VITALS: BP 109/61
[2019-10-20 05:32] LABS: HEMATOCRIT 26.1 % (42.0-52.0); MCH 27.4 pg (26.0-34.0); MCHC 30.8 g/dL (28.0-37.0); MCV 88.8 fL (80.0-100.0); RBC 2.94 mil/uL (4.50-6.00); RDW 20.4 % (10.5-14.5); WBC 8.9 thou/uL (4.0-11.0)
[2019-10-20 05:47] LABS: ALBUMIN 2.4 g/dL (3.4-5.0); CALCIUM 9.1 mg/dL (8.5-10.1); PHOSPHORUS 5.7 mg/dL (2.5-4.9)
[2019-10-20 05:53] LABS: CREATININE 4.2 mg/dL (0.7-1.3)
--- NOTE | 2019-10-20 05:53 | NUR ---
PT AOX4. PT REPORTS PAIN 6/10 IN BACK NEAR KIDNEYS. PT RECEIVING PRN PO NORCO Q4HR. PT REFUSING ALL WOUND TREATMENTS, ACHS CHECKS, AND REPOSITIONING. PT REPORTS HE IS COMFORTABLE. PT NOTED TO BE RESTING IN BED WITHOUT INTERRUPTION AFTER PRN PAIN MEDICATION ADMINISTRATION. TOLERATING PO INTAKE WITHOUT ISSUE. ENCOURAGED TO NOTIFY STAFF FOR ALL NEEDS. CALL LIGHT WITHIN REACH, BED IN LOWEST POSITION, BED ALARM ON. WILL CONTINUE TO MONITOR.
[2019-10-20 07:40] VITALS: BP 112/65
--- NOTE | 2019-10-20 13:56 | NUR ---
PT CARE ASSUMED AT 0700. A&Ox4. PT REFUSES BLOOD SUGARS. PT DOES HIS UROSTOMY AND COLOSTOMY BAG CHANGES HIMSELF. PT EMPTIED HIS COLOSTOMY HIMSELF WITH 400CC OUTPUT. PT WILL LAY IN HIS BED ALL DAY AND REFUSE ALL PT/OT/DRESSING CHANGES AND CONTINUESLY DEMANDS FOR HIS RENAL DIET TO BE CHANGED TO A REGULAR DIET. MD'S ARE AWARE OF THIS. PT IS A DIALYSIS PT MO,TUE,TUE. IV IS PATENT WITH NO REDNESS OR SWELLING. PT CAN GET UP IN THE WHEELCHAIR AND MOVE AROUND BUT CHOOSES NOT TOO. BED IS IN LOW POSITION, WITH BED ALARM IN AND LOCKED .
[2019-10-20 17:22] VITALS: BP 125/77
[2019-10-20 20:15] VITALS: BP 122/60
[2019-10-21 01:07] LABS: HEP B SURFACE Ab(ANTI-HBS Non Reactive (()); HEPATITIS B SURFACE AG Negative (Negative)
--- NOTE | 2019-10-21 03:48 | NUR ---
Assumed pt care @191. pt a&ox4. pt let nurse emptied colostomy bag. pain controlled with current regimen. pt refused BG check--stated that he is not a diabetic. urostomy in place and patent. no s/s of ditress. will cont to monitor
[2019-10-21 08:07] VITALS: BP 115/66
[2019-10-21 17:46] VITALS: BP 139/77
[2019-10-21 19:32] VITALS: BP 141/77
--- NOTE | 2019-10-22 02:21 | NUR ---
ASSESSMENT COMPLETED.PT C/O PAIN,ON HIS LEG,MANAGED WITH MED.PT REF DRSG CHANGES TO HIS WOUNDS,PT STATED"THE DAY SHIFT NURSE CHANGED THEM ALREADY".PT STILL ON IV ABX,IV SITE WENT BAD AFTER 2100 ABX ADMINISTRATION.PT STATED THAT HE IS A HARD STICK AND HE REF FOR THIS NURSE TO PUT A NEW IV ON HIM.HOUSE SUP AWARE.PT ALSO REF HIS BG CHECK AND Q2 TURNS.PT EDUCATED ON THE NEED FOR HIM TO BE REPOSITIONED HE VOICED UNDERSTANDING BUT STILL REF.PT NPO AT THIS TIME FOR SURGERY LATER IN THE DAY.PT'S COLOSTOMY AND UROSTOMY IN PLACE AND INTACT.PT RESTING ON HIS BED AT THIS TIME.FALL PRECAUTIONS IN PLACE.CALL LIGHT WITHIN REACH.
[2019-10-22 04:36] VITALS: BP 112/70
[2019-10-22 06:51] LABS: ALBUMIN 2.2 g/dL (3.4-5.0); CALCIUM 9.1 mg/dL (8.5-10.1); PHOSPHORUS 7.1 mg/dL (2.5-4.9); POTASSIUM 4.6 mmol/L (3.5-5.1)
[2019-10-22 06:52] LABS: CREATININE 6.6 mg/dL (0.7-1.3)
[2019-10-22 08:19] VITALS: BP 116/69
--- NOTE | 2019-10-22 15:22 | NUR ---
ASSUMED CARE OF THE PT AT 0700. PT REFUSES ACCUCHECKS, STATES "I AM NOT A DIABETIC". PTS WOUND DRESSINGS ARE DRY AND INTACT, DRESSINGS NOT CHANGED, PT REFUSED, WENT TO SX FOR DEBRIDEMENT AFTER DIALYSIS. R HAND IV DRY AND INTACT, R UPPER FISTULA, BRUIT HEARD AND THRILL FELT. COLOSTOMY/UROSTOMY INTACT. FALL PRECAUTIONS IN PLACE, BED IN LOWEST POSITION AND CALL LIGHT IS WITHIN REACH. WILL CONTINUE TO MONITOR THE PT.
[2019-10-22 23:54] VITALS: BP 96/55
--- NOTE | 2019-10-23 04:12 | NUR ---
PT POST OP ITCHIAL TUBEROSITY WOUNDS DEBRIDEMENT. POST OP DRSG INTACT. UROSTOMY AND COLOSTOMY BAGS CHANGED. PT REFUSES TO BE REPOSITIONED.VSS.IV ABTS GIVEN. CONTINUES TO RECEIVE HYDROCODONE FOR BACK PAIN. WILL CONTINUE WITH POC TILL EOS.
[2019-10-23 04:34] VITALS: BP 114/95
[2019-10-23 05:36] LABS: HEMATOCRIT 24.2 % (42.0-52.0); HEMOGLOBIN 7.4 gm/dL (14.0-18.0); MCH 27.3 pg (26.0-34.0); MCHC 30.7 g/dL (28.0-37.0); RBC 2.72 mil/uL (4.50-6.00); RDW 19.2 % (10.5-14.5); WBC 6.9 thou/uL (4.0-11.0)
[2019-10-23 07:45] VITALS: BP 111/63
--- NOTE | 2019-10-23 08:19 | HC ---
[facility] [place] [address] CONSULTATION Name: SEJALHILARIO Corcoran III Room #: 439-P [facility] IN .R.#: [id number] Admission: 10/18/19 Attend Phys: Vivian Miranda MD Discharge: Date of : 77 Report #: [id number] THIS REPORT FOR: //name// CC: Vivian Miranda [facility] physician/PCP REASON FOR CONSULTATION: End-stage renal disease. REASON FOR PRESENTATION: Increased drainage from his right lower extremity wound. HISTORY OF PRESENT ILLNESS: This is a very well-known patient to me. See my consultation note from 09/13/2019. He is a 44-year-old with past medical history of end-stage renal disease, maintained on hemodialysis every Tuesday, Tuesday and Tuesday. He is known to have spina bifida with paraplegia, status post suprapubic catheter, status post colostomy. He had extensive sacral wound on right lower extremity wound. He was discharged from our facility back on 09/18/2019 after being treated for his right lower extremity wound with incision, debridement and for his sacral wounds. It looks like that his facility was concerned about increasing drainage from his right foot wound and was sent for direct admission to be evaluated by the wound care team. On presentation, the patient has a white blood cell count of 18,000. His discharge, white blood cell count was 9.9. The patient is due to have his hemodialysis today. I was asked to assist in the management of his end-stage renal disease issues. PAST MEDICAL HISTORY: 1. Spina bifida. 2. Neurogenic bladder. 3. End-stage renal disease, maintained on hemodialysis. 4. Paraplegia. 5. Status post suprapubic catheter. 6. Status post colostomy. 7. Sacral wounds. 8. Right lower extremity wound. 9. Contracture deformities of his lower extremities. 10. Multiple incision and debridements of his lower extremity wounds and sacral decub wounds. ALLERGIES: PENICILLIN and CEPHALOSPORINS. SOCIAL HISTORY: The patient resides at the [facility]. MEDICATIONS: 1. Vitamin C. 2. Pantoprazole. 3. Zinc sulfate. [facility] [address] [place] [address] CONSULTATION Name: HILARIO POST [facility] Room #: 439-P [facility]#: [id number] Admission: 10/18/19 Attend Phys: Vivian Miranda MD Discharge: Date of : 77 Report #: [id number] 4. Sevelamer carbonate. 5. Famotidine. 6. Melatonin. REVIEW OF SYSTEMS: CONSTITUTIONAL: No fever or chills. CARDIOVASCULAR: No chest pain or palpitation. PULMONARY: No cough or hemoptysis. GASTROINTESTINAL: No nausea or vomiting. Status post colostomy. GENITOURINARY: He has a suprapubic catheter. MUSCULOSKELETAL: As per the history of present illness. PHYSICAL EXAMINATION: GENERAL: The patient is alert, oriented, in no apparent distress. VITAL SIGNS: Temperature is 36.9, blood pressure is 109/70. HEAD AND NECK: No jugular venous distention. CHEST: Decreased air entry bilaterally with no crackles. CARDIOVASCULAR: Regular with no rub detected. ABDOMEN: Soft with a suprapubic catheter and colostomy bag. LOWER EXTREMITIES: Contracture deformities of bilateral lower extremities with dressing applied over the right lower extremity. I did not examine his sacral wounds. LABORATORY VALUES: Reviewed. White blood cell count is 18.4, hemoglobin is 8.6. Sodium is 135, potassium is 5.2, BUN is 43, creatinine is 5.4. IMPRESSION AND PLAN: 1. End-stage renal disease. 2. Chronic bilateral lower extremity wounds. 3. Chronic sacral decubitus wound. 4. Leukocytosis. 5. Paraplegia. 6. Diabetes mellitus. 7. Hypertension. 8. We will arrange for the patient to have his usual hemodialysis every Tuesday, Tuesday and Tuesday. 9. Wound care. 10. Follow cultures if already drawn by the primary care. Otherwise, we will have to obtain blood cultures. 11. Antibiotics per primary team. 12. Resume his end-stage renal disease related medications including phosphorus binders. [address] [address] CONSULTATION Name: HILARIO POST [facility] Room #: 439-[facility] IN M.R.#: [id number] Admission: 10/18/19 Attend Phys: Vivian Miranda MD Discharge: Date of : 77 Report #: [id number] 13. Discontinue sodium bicarbonate. 14. We will continue to follow. <ELECTRONICALLY SIGNED> By: Lakhwinder Avendaño MD 10/23/19 0819 0857 1049 Lakhwinder Avendaño MD /nt
[2019-10-23 08:23] VITALS: BP 97/53
--- NOTE | 2019-10-23 10:30 | NUR ---
OSTOMY CARE; COLOSTOMY POUCH INTACT BUT POSITIONED UP, SUGGESTED TO CHANGE W/ APPLIANCE MORE POINTED DOWN BUT PT REFUSED, UROSTOMY POUCH LEAKING, NEW POUCH THELMA 2 PIECE SYSTEM APPLIED, STOMA PINK VIABLE BUDDED, PERISTOMAL SKIN INTACT, CLEAR YELLOW URINE NOTED, APPLIANCE CONNECTED TO DEP DRAINAGE, STUDENT NURSE PRESENT, SUPPLIES PLACED AT BS, WILL FOLLOW PRN LITHOSTRIPPER AWARE
--- NOTE | 2019-10-23 14:33 | NUR ---
POST OP DRESSINGS INTACT. WOUND TEAM CHANGED THE RIGHT LEG DRESSING AT 1424 ON 10/23/19. UROSTOMY BAG CHANGED BY WOUND TEAM OF 924 TODAY. COLOSTOMY BAG INTACT. PT REFUSES TO BE REPOSTIONED. AFTER PT EDUCATION HE ALLOWED ME TO DO ACCUCHECKS. CONTINUES TO STATE HIS BACK PAIN IS A 6. RN CONTINUES TO GIVE HIM HYDROCODINE FOR PAIN. FALL PRECAUTIONS IN PLACE, BED IN THE LOWEST POSITION AND CALL LIGHT WITHIN REACH. WILL CONTINUE TO MONITOR
--- NOTE | 2019-10-23 14:41 | NUR ---
I have reviewed and concur with student documentation.
[2019-10-23 14:48] VITALS: BP 97/61
--- NOTE | 2019-10-23 15:31 | NUR ---
WOUND CARE F/U; THE PATIENT WOUND NOT ALLOW US TO ASSESS ANY WOUND EXCEPT THE RIGHT POSTERIOR LEG. NON VIABLE TISSUE SEEN WITH MODERATE DRAINGE WITH NO ODOR. RECOMMENDATIONS;AQUACEL AG, ABD, KERLIX DAILY. DISCUSSED WITH STAFF
[2019-10-23 20:00] VITALS: BP 105/67
--- NOTE | 2019-10-23 20:00 | NUR ---
PT A&OX4. IV INTACT IN R ARM. PT REFUSED BUTTOCK DRSG CHANGE FROM WOUND CARE TEAM THOUGH ALLOWED R LOWER LEG TO BE CHANGED. TOLERATING PO PAIN MEDS WELL. BED ALARM IS LINER HELPER LIGHT W/I REACH.
--- NOTE | 2019-10-23 20:21 | HC ---
[facility] [place] [address] CONSULTATION Name: HILARIO POST Nilo [place] Room #: 439-P ADM IN .R.#: [id number] Admission: 10/18/19 Attend Phys: Vivian Miranda MD Discharge: Date of : 77 Report #: [id number] THIS REPORT FOR: //name// CC: Vivian Miranda [facility] physician/PCP DATE OF SERVICE: 10/18/2019 INFECTIOUS DISEASE CONSULTATION. REASON FOR CONSULTATION: I was asked to evaluate concerning bilateral ischial wound infection with leukocytosis in the setting of spina bifida and end-stage renal disease. HISTORY OF PRESENT ILLNESS: The patient is a 44-year-old with end-stage renal disease, on chronic hemodialysis via left upper extremity AV graft. He has underlying spina bifida with paraplegia, status post suprapubic catheter placement, colostomy. He remains fairly noncompliant with offloading. He has been seen several times over the last year for surgical debridement of his wounds. Presents now with worsening ischial wounds and right foot wound. The patient was seen on dialysis. He had no specific complaints. Denied any nausea, vomiting or diarrhea. He has had odorous drainage from his wounds. Main concern was getting off his renal calibrated diet. PAST MEDICAL HISTORY: Spina bifida, neurogenic bladder, end-stage renal disease, paraplegia, suprapubic catheter, colostomy, bilateral ischial wounds, right lower extremity wound, contracture deformities of his lower extremities. ALLERGIES: PENICILLIN, CEPHALOSPORINS. MEDICATIONS: Vitamin C, pantoprazole, zinc, Pepcid, melatonin, sevelamer. FAMILY HISTORY: Noncontributory. SOCIAL HISTORY: custodial resident. REVIEW OF SYSTEMS: Ten-point review was negative other than what has been described above. PHYSICAL EXAMINATION: VITAL SIGNS: He was afebrile and hemodynamically stable. GENERAL: He was alert and cooperative, just coming off the dialysis. EYES: Without scleral icterus. MOUTH: Without mucositis. NECK: Supple. He is moderately obese. No palpable adenopathy. CHEST: Clear anteriorly. [facility] [address] [place] [address] CONSULTATION Name: SEJALHILARIO [facility] Room #: 439-[facility] IN ..#: [id number] Admission: 10/18/19 Attend Phys: Vivian Miranda MD Discharge: Date of : 77 Report #: [id number] HEART: Regular, without murmur, gallop or rub. ABDOMEN: Obese with colostomy intact and pink mucosa. Suprapubic catheter in place. EXTREMITIES: He had bilateral lower extremity contractures and paraplegia, bilateral ischial wounds with purulent odorous drainage evident. Right lateral foot wound. LABORATORY STUDIES: Sodium 135, potassium 5.2, bicarbonate 29, creatinine 5.4. Hemoglobin 8.6, WBC 18.4, platelet count 283,000. No new culture data. Review of cultures from 09/14/2019 revealed Prevotella, porphyromonas, Clostridium perfringens, Bacteroides. IMPRESSION: 1. Bilateral ischial ulcers with secondary infection. 2. Spina bifida with paraplegia. RECOMMENDATIONS: We will continue broad antibiotic coverage. Obtain tissue cultures at time of surgical debridement first of next week. Continue offloading. Continue dialysis. <ELECTRONICALLY SIGNED> By: Kahlil Jerry MD 10/23/192020 1716 25 Kahlil Jerry MD /nt
[2019-10-24 05:00] VITALS: BP 133/76
--- NOTE | 2019-10-24 05:32 | NUR ---
PT C/O PAIN ON HIS R FLANK,MANAGED WITH MED.PT REF DRSG CHANGE TO ALL HIS WOUNDS.PT SAID THAT HE WANTS THE WOUNDS TO BE CHANGED DURING THE DAY.PT ALSO REF HIS BG CHECK,STATED THAT HE IS NOT DIABETIC.COLOSTOMY AND UROSTOMY INTACT.PT RESTING ON HIS BED AT THIS TIME.FALL PRECAUTIONS IN PLACE,CALL LIGHT WITHIN REACH.
--- NOTE | 2019-10-24 18:45 | NUR ---
PT ASSESSED AT START OF SHIFT. DIALYSIS THIS AM. PT REFUSES TO LET US TURN HIM. REFUSING TO HAVE DSNGS CHANGE AFTER SEVERAL TRIES. REFUSED TO HAVE LAB DRAW HIS BLOOD IF NOT ABLE TO GET ON FIRST TRY. WAS NOT GOING TO ALLOW COLOSTOMY BAG TO BE EMPITIED UNTIL IT HAD PULLED AWAY FROM SKIN AND WAS OOZING OUT. MARIA TERESAR IS FRIENDLY AND WANTS TO VISIT BUT JUST WANTS TO DO AND HAVE THINGS HIS WAY.
[2019-10-24 21:15] VITALS: BP 107/63
[2019-10-25 05:18] VITALS: BP 104/60
--- NOTE | 2019-10-25 06:44 | NUR ---
PT REF HIS DRSG CHANGES TO HIS BUTTOCK AND LOWER EXT.PT ALSO REF REPOSITIONING AND BG MONITOR.PT C/O PAIN,MANAGED WITH MED.PT ABLE TO MAKE HIS NEEDS KNOWN.FALL PRECAUTIONS IN PLACE,CALL LIGHT WITHIN REACH.
[2019-10-25 07:34] LABS: HEMATOCRIT 25.6 % (42.0-52.0); HEMOGLOBIN 7.9 gm/dL (14.0-18.0); MCH 27.4 pg (26.0-34.0); MCHC 30.9 g/dL (28.0-37.0); MCV 88.7 fL (80.0-100.0); RBC 2.88 mil/uL (4.50-6.00); RDW 19.2 % (10.5-14.5); WBC 8.9 thou/uL (4.0-11.0)
[2019-10-25 07:43] VITALS: BP 97/62
[2019-10-25 08:45] LABS: CALCIUM 9.2 mg/dL (8.5-10.1); CREATININE 4.3 mg/dL (0.7-1.3); POTASSIUM 4.3 mmol/L (3.5-5.1)
--- NOTE | 2019-10-25 13:33 | NUR ---
FAXED CLINICAL UPDATE TO [facility] SPOKE WITH MARÍA IN ADM SHE RECEIVED UPDATE. DP TO FOLLOW.
--- NOTE | 2019-10-25 15:41 | NUR ---
ID HAD WRITTEN RECS FOR AZTREONAM 1G IV EVERY 24 HOURS 2 WEEK SUPPLY. PT IS DIALYSIS PT AND WOULD NEED MIDLINE PLACED FOR ADMINISTRATION OF DRUG UPON DC. AWAITING CLARIFICATION IF CARE TEAM WANT MIDLINE PLACED FOR DAILY IV ABX TREATMENT AT [facility] OR IF DRUG/FREQUENCY IS TO BE CHANGED FOR PT TO HAVE IT ADMINISTERED AFTER DIALYSIS MWF AT [facility]. CM CONTACTED ADMISSION AT [facility] THREE TIMES THIS AFTERNOON TO DISCUSS IF PT IS TO HAVE DAILY IV ABX AT FACILITY IF THEY WILL NEED AUTH FOR SKILLED FOR PT TO RETURN. CM AWAITING FOR RESPONSE FROM CARE TEAM AND FROM FACILITY. CM TO FOLLOW INDICATED WITH DC PLANNING.
[2019-10-25 16:09] VITALS: BP 121/67
[2019-10-25 19:15] VITALS: BP 121/65
--- NOTE | 2019-10-25 19:41 | NUR ---
pt is A&OX3, PT is contiuning ABX, wound care and pain management, pt has wound care done by RN and wound nurse, wound DR has seeing pt's wound, RN has reported to drs about pt's refusion change position, we has education ,
--- NOTE | 2019-10-26 02:01 | NUR ---
PT DENIED PAIN SO FAR.PT CONT ON IV AND PO ABX ORDERED.DRSG ON HIS R GOVEA C/D/I.PT CONT TO REFUSE REPOSITIONING.COLOSTOM AND UROSTOMY BAG INTACT.PT SLEEPING ON HIS BED AT THIS TIME.FALL PRECAUTIONS IN PLACE,CALL LIGHT WITHIN REACH.
[2019-10-26 03:18] VITALS: BP 114/58
[2019-10-26 08:20] VITALS: BP 126/71
[2019-10-26 08:47] LABS: APTT 33.1 Seconds (24.5-32.8); INR 1.1; PROTIME 11.2 Seconds (9.3-11.4)
--- NOTE | 2019-10-26 11:11 | HC ---
[facility] [place] [address] CONSULTATION Name: HILARIO POST Nilo STARK Room #: 439-P ADM IN .R.#: [id number] Admission: 10/18/19 Attend Phys: Vivian Miranda MD Discharge: Date of : 77 Report #: [id number] THIS REPORT FOR: //name// CC: Vivian Miranda FAM physician/PCP DATE OF SERVICE: 10/19/2019 WOUND CARE CONSULTATION PERSONAL PHYSICIAN: Dr. Miranda. CHIEF COMPLAINT: Infected ischial decubitus ulcers. HISTORY OF PRESENT ILLNESS: This is a 44-year-old white male who has been a longest time patient of ours for multiple recurrent decubitus ulcers. The patient was just recently hospitalized and had debridement of the bilateral ischial decubitus ulcers and was sent back to his long-term care facility. The patient is extremely noncompliant and according to the facility refuses to turn in the bed as asked as well as refusing to have his wounds dressed on some days and also refuses to have his wounds cleaned or his bed sheets cleaned. It was felt that his ischial ulcer on the left as well as his left lower extremity ulceration was having increased drainage and odor. The patient himself is an extremely poor historian and when asked why he was here, he states "I don't even know why I am here." The patient denies any other new wounds at this time. PAST MEDICAL HISTORY: Significant for spina bifida with paraplegia, neurogenic bladder, end-stage renal disease on hemodialysis, gastroesophageal reflux disease, anemia. CURRENT MEDICATIONS: Multiple, I reviewed the patient's medication list. DRUG ALLERGIES: PENICILLIN, LATEX AND CEPHALOSPORINS. SOCIAL HISTORY: The patient resides in a long-term care facility, uses smokeless tobacco on a regular basis. Drinks alcohol socially. FAMILY HISTORY: Not pertinent to current medical condition. REVIEW OF SYSTEMS: CONSTITUTIONAL: The patient complains of low-grade fevers and chills at the facility. NEUROLOGIC: The patient denies any new isolated weakness in arms or legs. EYES: No complaints. ENT: No complaints. CARDIAC: The patient has chronic lower extremity edema, but denies chest pain [address] [address] CONSULTATION Name: SEJALHILARIO [facility] Room #: 439-P [facility] IN [facility]#: [id number] Admission: 10/18/19 Attend Phys: Vivian Miranda MD Discharge: Date of : 77 Report #: [id number] or palpitations. RESPIRATORY: The patient denies shortness of breath, cough or wheezes. GASTROINTESTINAL: The patient denies nausea, vomiting, abdominal pain. GENITOURINARY: The patient denies urgency or frequency. MUSCULOSKELETAL: No complaints. SKIN: The patient has chronic ulcerations in bilateral ischial regions as well as the left lateral calf region. PHYSICAL EXAMINATION: VITAL SIGNS: Temperature 36.5, pulse 96, respirations 19, BP 122/66. GENERAL: This is an alert and oriented x 3 white male who has an extremely flat affect and chronically ill appearing. HEENT: Normocephalic, atraumatic. Mucous membranes are dry. Pupils are round. Sclerae white. NECK: Supple, nontender. LUNGS: Clear. HEART: Regular. ABDOMEN: Soft, nontender. Suprapubic catheter is in place. Colostomy is in place and functioning. Evaluation of bilateral ischial regions reveals a mix of approximately 30% granulation tissue and 70% yellowish slough. There are areas of eschar on the left ischial region, which all appear to be somewhat superficial. There does not appear to be any deeper ulcers. I cannot palpate any bone. Periwound on both these is macerated. There is a moderate foul-smelling odor from each of these. EXTREMITIES: The patient moves the upper extremities without difficulty. The lower extremities, the patient has essentially no movement. On the left lateral lower extremity, there is a chronic ulceration which is a mix of 50% granulation and 50% yellowish slough. Periwound is intact. There is no significant undermining or tunneling. NEUROLOGIC: Cranial nerves 2-12 are grossly intact. The patient is paralyzed. LABORATORY VALUES: White count 18.4, hemoglobin 8.6, BUN 43, creatinine 5.4, potassium 5.2, prealbumin is pending. IMPRESSION: 1. Infected bilateral ischial decubitus ulcers, left greater than right, unstageable. 2. Chronic ulceration, left lateral lower extremity stage 3. 3. Spina bifida with paraplegia. 4. End-stage renal disease, on hemodialysis. 5. Diabetes mellitus. 6. Hypertension. PLAN: We put a consult in to Dr. Starkey who did surgery on this patient approximately 2 weeks ago for further debridement at this time. We will [address] [place] [address] CONSULTATION Name: HILARIO POST III Room #: 9-[facility] IN M.R.#: [id number] Admission: 10/18/19 Attend Phys: Vivian Miranda MD Discharge: Date of : 77 Report #: [id number] continue to maximize the patient's oral protein supplementation for healing per his renal diet. IV antibiotics per the hospitalist team. We will continue with his hemodialysis per Nephrology. We will put Dakin's wet to dry dressings quarter strength to all the open wounds on bilateral ischial regions as well as his left lateral lower extremity ulcer, cover this with ABDs and Kerlix. Put patient on a low air loss mattress, having turned every 2 hours. We will continue to follow the patient. I appreciate the ability to consult. <ELECTRONICALLY SIGNED> By: Elier Dewitt MD 10/26/19 1111 1301 1804 Elier Dewitt MD /nt
--- NOTE | 2019-10-26 12:16 | NUR ---
Followup: Hx spina bifida, continues treatment for bilateral IT wound and lower extremity wound. Intake >80% meals, refuses oral supplement. Wt stable. Would continue zinc sulfate supplementation due to wound drainage. Dialysis today. Otherwise remains low nutrition risk.
[2019-10-26] MEDS ORDERED: AZTREONAM1 GM IV (12:50)
[2019-10-26] MEDS ORDERED: METRO IV 5500 MG/100 IV (12:50)
--- NOTE | 2019-10-26 15:06 | NUR ---
[facility] SUBMITTED FOR AUTH YESTERDAY LATE AFTERNOON. PT AND OT HAD BEEN ORDERED TO WORK WITH PT BUT HE IS IN DIALYSIS CURRENTL SO EVALS WEREN'T ABLE TO BE COMPLETED. PT IS NEEDING DAILY IC ABX TREATMENT AND CONTINUED WOUND CARE SO THERE ARE SKILLABLE NEEDS. PT HAD TICC LINE PLACE THIS AM. CM TO FOLLOW INDICATED WITH DC PLANNING.
--- NOTE | 2019-10-26 16:30 | NUR ---
AWAITING AUTH FOR PT TO GO TO [facility]. IF AUTH IS RECEIVED CALL [phone] FAX ORDERS TO . [facility]SP[facility] WILL NEED TO BE ARRANGED. IS NEEDED CALL [facility] AT .
[2019-10-26 18:13] VITALS: BP 94/61
[2019-10-26 19:35] VITALS: BP 104/59
--- NOTE | 2019-10-26 20:09 | NUR ---
PT ASSESSED AT START OF SHIFT. WENT TO IR FOR TICC LINE PLACEMENT FOR EXTENDED IV ANTIBIOTIC THERAPY. HAD DIALYSIS THIS AFTERNOON. UNABLE TO TAKE ALL THE FLUID PER HEMODIALYSIS TECHNICIAN PRESSURE DROPPED. DISCUSSED W/ DR. BRICENO PT RESISTANCE TO ALLOWING NURSES TO TURN OR CHANGE HIS DSNGS.
--- NOTE | 2019-10-27 02:13 | NUR ---
PT REFUSES TO BE REPOSITIONED. IT WAS DIFFICULT TO GET HIM TO ACCEPT TO HAVE THE BUTTOCK WOUND DRSG CHANGED-DRSG WAS TOTALLY SOILED AND WITH FOUL ODOR-FINALLY CHANGED.UROSTOMY BAG CHANGED TOO. COLOSTOMY EMPTIED, LOOKS OK. PT GIVEN PAIN MEDS AND AMBIEN PER REQUEST.IV MEDS GIVEN. COMPLETE BED CHANGE AND LINEN CHANGED. PT REFUSED BATH.CALL LIGHT WITHIN REACH. WILL CONTINUE WITH POC TILL EOS.
[2019-10-27 03:15] VITALS: BP 107/62
[2019-10-27 08:30] VITALS: BP 117/66
[2019-10-27 16:50] VITALS: BP 119/74
[2019-10-27 19:38] VITALS: BP 122/76
[2019-10-28 03:56] VITALS: BP 112/65
--- NOTE | 2019-10-28 04:00 | NUR ---
PT CONTINUES TO GET PRN HYROCODONE FOR R FLANK PAIN. DRSG CHANGED TO BOTH BUTTOCK WOUNDS AND R CALF. PT HESITANT AND NOT VERY COOPERATIVE. BOTH UROSTOMY AND COLOSTOMY BAGS LOOK GOOD. DARK CLODY URINE AND GOOD BM OUTPUT.REFUSES ACCUCHECK.EATING WELL. NO FURTHER CONCERNS.
[2019-10-28 08:10] VITALS: BP 110/63
[2019-10-28 16:05] VITALS: BP 120/68
[2019-10-28 19:45] VITALS: BP 121/76
--- NOTE | 2019-10-29 03:56 | NUR ---
ASSUMED PT CARE AT 1900. PT IN H[employer]IRITS TONIGHT FOLLOWING SUPERBOWL WIN. REPORTING PAIN 6/10, PAIN MEDS PROVIDING RELIEF. PM MEDS GIVEN, ANTIBIOTIC HUNG PER ORDER. WOUND DRESSING DRY AND INTACT. RESTING CURRENTLY IN BED WATHCING TV, WILL CONTINUE TO MONITOR.
[2019-10-29 04:15] VITALS: BP 114/67
[2019-10-29 05:28] LABS: HEMOGLOBIN 6.8 gm/dL (14.0-18.0); MONOCYTES 7.2 % (1.0-8.0); WBC 8.1 thou/uL (4.0-11.0)
[2019-10-29 05:32] LABS: ABSOLUTE NEUTROPHILS 5.8 thou/uL (1.4-8.2); EOSINOPHILS 3.8 % (0.0-3.0); HEMATOCRIT 21.4 % (42.0-52.0); LYMPHOCYTES 16.2 % (24.0-44.0); MCH 27.7 pg (26.0-34.0); MCHC 31.6 g/dL (28.0-37.0); MCV 87.6 fL (80.0-100.0); PLATELET COUNT 298 thou/uL (150-400); POLYS 71.8 % (36.0-66.0); RBC 2.45 mil/uL (4.50-6.00); RDW 18.2 % (10.5-14.5)
[2019-10-29 05:46] LABS: ALBUMIN 2.2 g/dL (3.4-5.0); CALCIUM 8.5 mg/dL (8.5-10.1); CREATININE 6.1 mg/dL (0.7-1.3); POTASSIUM 4.6 mmol/L (3.5-5.1); TOTAL BILIRUBIN 0.2 mg/dL (<0.1-1.0); TOTAL PROTEIN 7.1 g/dL (6.4-8.2)
[2019-10-29 07:32] VITALS: BP 114/68
--- NOTE | 2019-10-29 11:02 | NUR ---
OSTOMY CARE; BOTH UROSTOMY AND COLOSTOMY POUCH LEAKING, NEW POUCH THELMA 2 PIECE CUT TO FIT APPLIED TO UROSTOMY STOMA AND CONNECTED TO DEP DRAINAGE, YELLOW CLEAR URINE NOTED, BOTH STOMAS PINK VIABLE BUDDED, BOTH PERISTOMAL AREA INTACT, NEW POUCH THELMA CUT TO FIT APPLIED TO COLOSTOMY W/ ADAPT RING UNDER WAFER,LOOSE BROWN STOOL NOTED, BROADCAST DESIGNER PRESENT ASSESSING STOMAS. SUPPLIES AT RECOMMENDATIONS, CONT SAME OSTOMY CARE, CUT TO FIT APPLIANCES, CHANGE Q3-5 DAYS AND PRN, USE ADAPT RING UNDER COLOSTOMY POUCH STAFF AWARE BROADCAST DESIGNER AWARE
--- NOTE | 2019-10-29 14:25 | NUR ---
ASSUMED CARE OF THE PT AT 0700. PT HGB IS 6.8, BLOOD ORDERED. PT HAD DIALYSIS, VITALS STABLE. PT REFUSED DRESSING CHANGES ON R ISCHIAL AND R LATERAL LEG. COLOSTOMY/ ILEOSTOMY CHANGED. L UPPER ARM FISTUAL INTACT/ R CHEST PICC INTACT AND DRY. BED IN LOWEST POSITION, CALL LIGHT IS WITHIN REACH AND BED ALARM IS ON. WILL CONTINUE TO MONITOR THE PT.
--- NOTE | 2019-10-29 15:17 | NUR ---
PT DISCHARGING TODAY BACK TO [facility] FAXED DC ORDERS/SUMMARY TO FACILITY SPOKE WITH MARÍA IN ADM SHE RECEIVED DC ORDERS AND ARRANGED TRANSPORT BY [facility] FOR 1600 TODAY. NOTIFIED PT'S SISTER (RONEY) OF DC AND TIME OF TRANSPORT. UNIT NOTIFIED AND CHART COPY PER US. RN TO CALL REPORT TO [phone].
--- NOTE | 2019-10-29 15:23 | NUR ---
CARE TEAM INDCIATED THAT PT IS MEDICALLY STABLE TO DC SKILLED TO [facility] THIS DAY. AUTH WAS OBTAINED. [facility] IS ARRANGED FOR 1600. DC BALL FRINGE MACHINE OPERATOR TO CALL AND NOTIFY PT'S SISTER. CHART COPY MADE. ORDERS FAXED. NURSE GIVEN NUMBER FOR REPORT. FLOW SHEETS FAXED TO [facility]. NO OTHER CM INTERVENTION INDICATED. CASE CLOSED.
== END 2019-10-29 16:07 | DRG 853 ==
LOC: 4S 16:14
PROVIDERS: Hospitalist; Internal Medicine; Internal Medicine Infectious Disease; Internal Medicine Nephrology; Nurse Practitioner; Radiology Vascular & Interventional Radiology; Surgery; ADMIT Hospitalist
PROC: 0JB70ZZ Excision of Back Subcutaneous Tissue and Fascia, Open Approach (ICD-10-PCS; principal; 2019-10-22)
PROC: 5A1D70Z Performance of Urinary Filtration, Intermittent, Less than 6 Hours Per Day (ICD-10-PCS; principal; 2019-10-22)
PROC: 0QBG0ZZ Excision of Right Tibia, Open Approach (ICD-10-PCS; principal; 2019-10-22)
PROC: B5181ZA Fluoroscopy of Superior Vena Cava using Low Osmolar Contrast, Guidance (ICD-10-PCS; 2019-10-26)
PROC: 02H633Z Insertion of Infusion Device into Right Atrium, Percutaneous Approach (ICD-10-PCS; 2019-10-26)
PROC: B548ZZA Ultrasonography of Superior Vena Cava, Guidance (ICD-10-PCS; 2019-10-26)
PROC: 5A1D70Z Performance of Urinary Filtration, Intermittent, Less than 6 Hours Per Day (ICD-10-PCS; 2019-10-29)
DX: A41.9 Sepsis, unspecified organism (principal); L89.154 Pressure ulcer of sacral region, stage 4; L89.514 Pressure ulcer of right ankle, stage 4; L89.214 Pressure ulcer of right hip, stage 4; N18.6 End stage renal disease; L03.116 Cellulitis of left lower limb; G82.20 Paraplegia, unspecified; I12.0 Hypertensive chronic kidney disease with stage 5 chronic kidney disease or end stage renal disease; L97.929 Non-pressure chronic ulcer of unspecified part of left lower leg with unspecified severity; E87.1 Hypo-osmolality and hyponatremia; E44.0 Moderate protein-calorie malnutrition; Z68.45 Body mass index [BMI] 70 or greater, adult; N31.9 Neuromuscular dysfunction of bladder, unspecified; L89.159 Pressure ulcer of sacral region, unspecified stage; E11.22 Type 2 diabetes mellitus with diabetic chronic kidney disease; L89.90 Pressure ulcer of unspecified site, unspecified stage; F17.200 Nicotine dependence, unspecified, uncomplicated; E87.5 Hyperkalemia; N13.9 Obstructive and reflux uropathy, unspecified; E87.8 Other disorders of electrolyte and fluid balance, not elsewhere classified; L89.312 Pressure ulcer of right buttock, stage 2; L89.892 Pressure ulcer of other site, stage 2; K21.9 Gastro-esophageal reflux disease without esophagitis; Z91.14 Patient's other noncompliance with medication regimen; Z99.2 Dependence on renal dialysis; Z93.50 Unspecified cystostomy status; Z93.3 Colostomy status; Q05.9 Spina bifida, unspecified; Z88.1 Allergy status to other antibiotic agents; Z88.0 Allergy status to penicillin; Z91.048 Other nonmedicinal substance allergy status; Z91.19 Patient's noncompliance with other medical treatment and regimen
CPT/HCPCS: 10102; 32100; 50010; 50101; 50386; 50403; 57119; 57120; 62110; 62850; 70005

== ENCOUNTER 2019-12-15 13:16 | Inpatient (IN) | payer OTHER ==
[~2019-12-15] VITALS: Ht 129.5 cm; Wt 90.9 kg
[2019-12-15] VITALS (29 sets, daily range): BP systolic 83–106; BP diastolic 41–68
--- NOTE | ~2019-12-15 | H ---
[facility] [place] [address] HISTORY AND PHYSICAL Name: HILARIO POST III Room #: 239-P ADM IN M.R.#: [id number] Admission: 12/15/19 Attend Phys: Chata Ybarra MD Discharge: Date of : 77 Report #: [id number] THIS REPORT FOR: cc: [facility] - Family physician unknown FAM - Family physician unknown Chata Ybarra MD ~ CC: [facility] unknown Chata Ybarra DATE OF SERVICE: 12/15/2019 PRIMARY CARE PHYSICIANS: 1. Dr. Lakhwinder Avendaño. 2. Dr. Elier Dewitt. CHIEF COMPLAINT: Fever and cough for the past 3 days. HISTORY OF PRESENT ILLNESS: The patient is a very pleasant 44-year-old gentleman, very well known to our medical service here for his end-stage renal disease with a chronic nonhealing wound. The patient informs me that last time he got dialysis was Tuesday and he missed the dialysis because he was very weak and he was sick with fever for past 3 days and so therefore he did not go for his dialysis. The patient has a spina bifida and paraplegia and has a chronic nonhealing decubitus ulcer and wound on the right lower extremity and also has colostomy as well as ileostomy. The patient informs me that he has been having some dry cough without any chest wall pain or shortness of breath and fever for past 3-4 days. The patient does not recall what temperature he had, but he felt very bad and was very weak and tired besides having fever and cough and therefore was brought to the ER for further evaluation. In the ER, the patient was noted to have a hemoglobin of 6.1 and also has not gotten dialyzed since Tuesday, so he is due for dialysis as well. The patient informs me that he has not had any exposure to his knowledge to coronavirus. He is not sure whether his facility has any patient diagnosed with coronavirus infection or not. He informs me that his main complaint is just weakness, not feeling well, cough and fever and is unable to explain much, informs me that he is feeling cold and he would rather just rests instead of talking to me. He did allow me to let him examined. The patient gets dialyzed on Tuesday, Tuesday and Tuesday, but has not been able to get dialysis because of him being sick. PAST MEDICAL HISTORY: Significant for: 1. End-stage renal disease, on dialysis on Tuesday, Tuesday and Tuesday schedule. 2. Spina bifida with neurogenic bladder and suprapubic catheter as well as status post colostomy and ileostomy. 3. Sacral wound, chronic as well as right lower extremity wound. 4. Contracture deformities of both lower extremities. [facility] [address] [place] [address] HISTORY AND PHYSICAL Name: HILARIO POST III Room #: 239-P [facility] IN M.R.#: [id number] Admission: 12/15/19 Attend Phys: Chata Ybarra MD Discharge: Date of : 77 Report #: [id number] 5. Anemia of chronic disease. 6. Gastroesophageal reflux disease. PAST SURGICAL HISTORY: The patient has had an AV fistula placed for his dialysis and he has had multiple surgeries for his right lower extremity wound as well as for the sacral wound. ALLERGIES: THE PATIENT IS ALLERGIC TO PENICILLIN, CEPHALOSPORINS AND LATEX. SOCIAL HISTORY: The patient resides at the snf and informs me that he does not smoke and does not drink alcohol. CURRENT MEDICATIONS: 1. Vitamin C 500 mg daily. 2. Pantoprazole 40 mg daily. 3. Zinc sulfate 220 mg daily. 4. Sodium bicarbonate 650 mg b.i.d. 5. Renvela 800 mg before meals twice a day. 6. Acetaminophen t.i.d. p.r.n. 7. Famotidine 20 mg at bedtime. 8. Melatonin. 9. Boyers for pain. REVIEW OF SYSTEMS: CONSTITUTIONAL: Positive for fever, but denies any shaking chills or night sweats. Positive for malaise. HEENT: Denies any sore throat, but did have some cough without any sputum production for last 3-4 days. Denies any sinus drainage or rhinorrhea. CARDIOVASCULAR: Denies any chest pain or pressure or pleuritic chest pain. Denies any orthopnea or paroxysmal nocturnal dyspnea. GASTROINTESTINAL: Denies any nausea or vomiting. Has had large stool as soon as he arrived in ICU with a colostomy leakage, so has a new colostomy bag now. GENITOURINARY: Denies any burning, frequency, but he has noticed dark urine. MUSCULOSKELETAL: He informs me that he has had dark brown purulent drainage from his right lower extremity wound and a skin breakdown in the right lower extremity as well as sacral area. NEUROLOGICAL: Denies any headache or weakness or numbness of any part of the body other than the paraplegia he has. PHYSICAL EXAMINATION: VITAL SIGNS: When he presented to the ER, temperature 36.8, heart rate 103, respirations 25, blood pressure 102/56, pulse oximeter 100% on room air. GENERAL: Alert and oriented to time, place and person, very pleasant, morbidly obese gentleman who is bedbound and has paraplegia with contractures of both lower extremities and is minimally cooperative with the physical examination because he was feeling cold. [address] [address] HISTORY AND PHYSICAL Name: HILARIO POST III Room #: [facility] IN ..#: [id number] Admission: 12/15/19 Attend Phys: Chata Ybarra MD Discharge: Date of : 76 Report #: [id number] HEENT: Normocephalic, atraumatic. Pupils are equally round and reactive to light. Conjunctivae clear. Sclerae nonicteric. Marked pallor noted of the skin as well as conjunctivae. Pupils equally round, reactive to light and accommodation. Oropharynx is clear. Mucous membranes are moist. NECK: Supple, no JVD, no lymphadenopathy. HEART: S1, S2, regular. No murmur, no S3, no S4. LUNGS: Clear to auscultation bilaterally without any crackles or wheezes. ABDOMEN: Soft. The patient has mild discomfort in the epigastric area without any rebound or rigidity. The patient has colostomy with liquid stool noted and ileostomy, large obese abdomen and suprapubic catheter noted. EXTREMITIES: The patient has a rash at the both groin and right lower extremity wound has been dressed, had dark brown drainage, marked significant drainage and both hips as well as knee with contractures bilaterally. SKIN: Right leg ulcer, stage 4, right ischial tuberosity has pressure ulcer, then left ischial tuberosity pressure ulcer and left inner thigh pressure ulcer, a tiny one. LABORATORY DATA: Influenza A and B are negative. WBC 5.9, hemoglobin critically low at 6.2, hematocrit 19.0, platelet count 215, segmented neutrophils 75%, band neutrophils 9%. The patient had sodium 131, potassium 5.1, chloride 94, bicarbonate 29, anion gap 8, BUN 43, creatinine 7.5. Glucose is 107. Lactic acid is 1.6, calcium 9.0, magnesium 1.8. Urinalysis with pH 8.5, specific gravity 1.015, nitrite negative, bilirubin negative, leukocyte esterase 3+, WBCs greater than 25, RBCs rare, squamous epithelial cells 4-10 moderate and bacteria greater than 30 many. Chest x-ray was done in the Emergency Room with limited effort and lower lung volume and no infiltrate notified. ASSESSMENT AND PLAN: 1. Acute febrile illness with cough in the setting of being at a snf in a facility, it is prudent to get a coronavirus testing done. Infectious Disease has been consulted. 2. For anemia, critically low hemoglobin, we will go ahead and give 1 unit of PRBC transfusion. 3. End-stage renal disease with dialysis, missed on Tuesday, the patient will go ahead and get a Nephrology consult and will have dialysis tomorrow morning. Currently, potassium is normal is 5.1, so we will go ahead and continue monitoring and the patient will be scheduled to get dialyzed tomorrow. 4. Wound care. Extensive wound. We will go ahead consult General Surgery as well as Wound Care Clinic and wound care team. 5. Protein-calorie malnutrition with morbid obesity. 6. The patient is full code. 7. For urinary tract infection, we will go ahead and start aztreonam and for the skin ulcers, we will go ahead and start vancomycin per pharmacy to dose. Plan of care was discussed with the RN taking care of the patient in the ICU and [address] [address] HISTORY AND PHYSICAL Name: HILARIO POST III Room #: 239-P [facility] IN M.R.#: [id number] Admission: 12/15/19 Attend Phys: Chata Ybarra MD Discharge: Date of : 76 Report #: [id number] we will wait for Infectious Disease and Nephrology to give us feedback and we will go ahead and put a General Surgery consult as well and the patient is full code and order has been written. For GI prophylaxis, we will give IV Protonix and for DVT prophylaxis, we will give Lovenox, once some PRBC transfusion has been done and stool culture is negative. By: 39 30 Chata Ybarra MD /nt
--- NOTE | ~2019-12-15 | HC ---
[facility] [place] [address] CONSULTATION Name: SEJALHILARIO Corcoran III Room #: [facility] IN .R.#: [id number] Admission: 12/15/19 Attend Phys: Chata Ybarra MD Discharge: Date of : 76 Report #: [id number] THIS REPORT FOR: cc: [facility] - Family physician unknown SHAVON - Family physician unknown Clark Sosa MD ~ CC: [facility] unknown Chata Ybarra DATE OF SERVICE: 12/16/2019 INFECTIOUS DISEASE CONSULTATION ATTENDING PHYSICIAN: Dr. Ybarra. REASON FOR EVALUATION: Febrile illness, suspected complicated urinary tract infection, has been ruled out for COVID-19 as well. HISTORY OF PRESENT ILLNESS: Chart reviewed, patient examined. This is a 44-year-old gentleman known to our service, has known spina bifida, was last seen in March of this year been admitted with multiple wounds, these are still in place, is felt to be pressure related involving the ischial wounds, right foot. The patient is known to have end-stage renal disease. He is on hemodialysis and been evaluated and noted to have quite low hemoglobin. He was scheduled to have transfusion, was found to have fever and a nonproductive cough dated roughly 3 days prior and ongoing, additionally noted to have some cloudy urine. Due to concerns about the possibility of COVID, he was referred to the Emergency Room and evaluation confirmed marked pyuria. Chest x-ray showed no definite acute process. Lactic acid was 1.6. White count was 5.9 and confirmed to have hemoglobin of 6.2. He was subsequently admitted. He has been placed in isolation. COVID testing is done and pending. At this point, he has somewhat flat affect. He denies focal signs and symptoms, really not engaged. He is noted to be afebrile while he is here. He has not had a degree of coughing, started empirically on vancomycin and aztreonam. ALLERGIES: PENICILLIN, CEPHALOSPORINS AND LATEX. CURRENT MEDICATIONS: Include as noted above, the vancomycin, aztreonam, hydrocodone, pantoprazole, Altace. PAST MEDICAL HISTORY: Includes spina bifida, neuromuscular dysfunction, neurogenic bladder, end-stage renal disease, iron deficiency anemia, reflux, paraplegia, multiple decubitus ulcers. SOCIAL HISTORY: Nonsmoker, no ethanol, no illicit drug use. [address] [address] CONSULTATION Name: SEJALHILARIO [facility] Room #: [address] [place] [address] IN M.R.#: [id number] Admission: 12/15/19 Attend Phys: Chata Ybarra MD Discharge: Date of : 77 Report #: [id number] FAMILY HISTORY: Noncontributory. REVIEW OF SYSTEMS: Apparently, he has had some anorexia with poor p.o. intake. Denies otherwise GI related complaints. PHYSICAL EXAMINATION: GENERAL: He has a flat affect. He is not overtly distressed. He is maintained on room air. VITAL SIGNS: He is afebrile, pulse 85, respirations slightly elevated at 30, BP is 89/56. SKIN: Warm, dry. HEENT: Normocephalic. Extraocular muscles intact. NECK: Supple. LUNGS: Diminished overall. HEART: Regular. I do not appreciate a murmur. ABDOMEN: Obese, distended. There are no peritoneal signs. GENITOURINARY AND RECTAL: Deferred. LABORATORY DATA: As noted above. Influenza antigen was negative. CBC: White count of 5.9, H and H 6.2 and 19.0, platelets of 215. Did have 9% bands. Lactic acid is 1.6. Sodium 131, potassium 5.1, chloride 94, bicarbonate is 29, anion gap of 8, BUN and creatinine 43 and 7.5, and glucose of 107. Estimated GFR of 8. Chest x-ray showed normal heart size, no definite acute process. Urinalysis, brown, turbid, 3+ protein, 3+ leukocytes, trace blood, WBC greater than 25, bacteria greater than 30. ASSESSMENT: Fevers, likely complicated urinary tract infection. This has been his pattern historically and certainly has an additional wounds, this could be a source of driving the fevers as well. Discussion was agreed, rule out COVID and keep him in isolation. We will await results. At this point, he is not overtly toxic or hemodynamically unstable. We will discuss with Dr. Jerry. By: [id number] Clark Sosa MD /nt
[~2019-12-15 13:16] MED LIST changes: +AZTREONAM1 GM IV; +METRO IV 5500 MG/100 IV
[2019-12-15] MEDS ORDERED: NORCO 5-325 TA1 EAC1 PO (13:24)
[2019-12-15] MEDS ORDERED: LEVAQUIN 500 M500 M3 PO (13:24)
[2019-12-15] MEDS ORDERED: OYSTERCAL-D 501 EACH PO (13:25)
[2019-12-15 13:39] LABS: URINE BILIRUBIN NEGATIVE (Negative); URINE BLOOD TRACE (Negative); URINE CLARITY TURBID; URINE COLOR BROWN; URINE GLUCOSE-RANDOM* NEGATIVE (Negative); URINE KETONES NEGATIVE (Negative); URINE LEUKOCYTES-REFLEX 3+ (Negative); URINE NITRITE-REFLEX NEGATIVE (Negative); URINE PROTEIN (DIPSTICK) 3+ (Negative); URINE SPECIFIC GRAVITY 1.015 (1.005-1.035); URINE UROBILINOGEN 0.2 E.U./dl (0.2-1.0)
[2019-12-15 13:49] LABS: BACTERIA-REFLEX >30 Many /HPF (None Seen); URINE WBC-REFLEX >25 Many /HPF (0-5)
[2019-12-15 13:50] LABS: CASTS None Seen /LPF (None Seen); SQUAMOUS 4-10 Moderate /LPF (0-3); URINE RBC 0-2 Rare /HPF (0-2)
[2019-12-15 13:58] LABS: AMORPHOUS PHOSPHATES Moderate /LPF (None Seen); TRIPLE PHOSPHATE CRYSTALS 0-3 Few /LPF (None Seen)
[2019-12-15 15:50] LABS: CREATININE 7.5 mg/dL (0.7-1.3); MAGNESIUM 1.8 mg/dL (1.8-2.4); POTASSIUM 5.1 mmol/L (3.5-5.1)
[2019-12-15 15:53] LABS: RDW 17.5 % (10.5-14.5)
[2019-12-15 15:55] LABS: MCH 28.7 pg (26.0-34.0); MCHC 32.4 g/dL (28.0-37.0); MCV 88.3 fL (80.0-100.0); PLATELET COUNT 215 thou/uL (150-400); RBC 2.15 mil/uL (4.50-6.00); WBC 5.9 thou/uL (4.0-11.0)
[2019-12-15 15:57] LABS: HEMOGLOBIN 6.2 gm/dL (14.0-18.0)
[2019-12-15 16:26] LABS: ANISOCYTOSIS 2+; POLYCHROMASIA OCCASIONAL
--- NOTE | 2019-12-15 19:22 | NUR ---
PATIENT ARRIVED TO ICU ROOM 239 AT 1845 VIA CART, WITH ED RN. BLOOD WAS BROUGHT TO ICU ALONG SIDE PATIENT IN A BLOOD BANK CONTAINER. BATH WAS PROVIDED AND THE PATIENTS COLOSTOMY BAG WAS NOT INTACT. A SECOND BATH WAS GIVEN, OSTOMY CART ORDERED. CONSULTS CALLED. REPORT GIVEN TO SUPERVISOR SHIPPING ROOM RN FOR CONTINUATION OF CARE.
[2019-12-16] VITALS (44 sets, daily range): BP systolic 82–119; BP diastolic 46–70
[2019-12-16 01:23] LABS: HEMOGLOBIN 6.4 gm/dL (14.0-18.0)
--- NOTE | 2019-12-16 06:00 | NUR ---
PT REMAINS IN ISOLATION FOR POSSIBLE COBID 19. TEST SENT TO LAB. NO FEVER CHEST PAIN NOR SOA. WILL CONT TO MONITOR.
--- NOTE | 2019-12-16 07:00 | NUR ---
pt awake and alert. sinus rhythm. afebrile. 150 cc foul smelling drainage from urostomy. 300 cc brown liquid stool from colostomy. o2 sat 97 % on room air. had 2 units packed cells tonight for hgb of 6.4 now hgb 7.1 pt refused to turn bathed earlier. pushes me away when i attempt to do cares. will cont to monitor
[2019-12-16 07:29] LABS: ABSOLUTE NEUTROPHILS 4.3 thou/uL (1.4-8.2); BASOPHILS 0.5 % (0.0-2.0); EOSINOPHILS 1.4 % (0.0-3.0); HEMATOCRIT 21.9 % (42.0-52.0); HEMOGLOBIN 7.1 gm/dL (14.0-18.0); LYMPHOCYTES 8.9 % (24.0-44.0); MCH 27.9 pg (26.0-34.0); MCHC 32.3 g/dL (28.0-37.0); MCV 86.3 fL (80.0-100.0); MONOCYTES 10.5 % (1.0-8.0); PLATELET COUNT 208 thou/uL (150-400); POLYS 78.7 % (36.0-66.0); RBC 2.53 mil/uL (4.50-6.00); RDW 17.1 % (10.5-14.5); WBC 5.5 thou/uL (4.0-11.0)
[2019-12-16 07:43] LABS: ALBUMIN 1.4 g/dL (3.4-5.0); CREATININE 7.2 mg/dL (0.7-1.3); MAGNESIUM 1.7 mg/dL (1.8-2.4); PHOSPHORUS 5.8 mg/dL (2.5-4.9); POTASSIUM 4.5 mmol/L (3.5-5.1); TOTAL BILIRUBIN 0.7 mg/dL (<0.1-1.0); TOTAL PROTEIN 6.1 g/dL (6.4-8.2)
--- NOTE | 2019-12-16 11:44 | NUR ---
SPOKE WITH DR ESTRELLA AT CYNDY 0930 GIVEN UPDATE TO PATIENT'S REFUSAL TO HAVE DIALYSIS TODAY AND LAB RESULTS. ALSO UPDATED TO MEAN ARTERIAL PRESSURE OF GREATER THAN 60 MMHG.
--- NOTE | 2019-12-16 20:01 | NUR ---
PATIENT AFEBRILE TODAY. CONTINUES TO REFUSE TO TURN, OR HAVE THIS NURSE OBSERVE HIS UROSTOMY OR COLOSTOMY SITE, STATES THAT IT IS FINE. WILL CONTINUE TO MONITOR
[2019-12-17] VITALS (16 sets, daily range): BP systolic 96–122; BP diastolic 52–69
--- NOTE | 2019-12-17 03:06 | NUR ---
A/O X 4.PAIN WELL CONTROLLED WITH PAIN PILL.REFUSED TO BE TURNED.EVERYTIME PATIENT WAS ASK IF WE CAN TURN HIM AND LOOK AT HIS COLOSTOMY AND CATH;HE REFUSED AND SAYS IT'S FINE.MONITOR SHOWS SR.POC CONTINUED.
--- NOTE | 2019-12-17 12:01 | NUR ---
ASSESSMENT: CM REVIEWED CHART AND SPOKE WITH PATIENTS SISTER RONEY. PT IS A LTC RESIDENT AND CAME IN FROM [facility]. SISTER REPORTS PATIENT LIVES THERE AND WAS LIVING AT [facility] IN THE PAST. PT HAS HX OF SPINDA BIFIDA, PARAPLEGIA, ESRD, AND NON-HEALING WOUND. PT GETS DIALYSIS AND SISTER IS UNAWARE OF THE CLINIC NAME BUT STATES IT IS M-W-F AND BY [facility]. RONEY STATES PT WAS USING A WHEELCHAIR AT TIMES. CM ATTEMPTED TO CONTACT ADMISSION AT [facility] BUT VM WAS LEFT. CM Faxed CLINICAL TO FACILITY. PT IS BEING TESTED FOR COVID 19 AND RESULTS ARE PENDING, RESULTS WILL LIKELY NEED TO BE BACK PRIOR TO RETURNING TO FACILITY. CM WILL CONTINUE TO FOLLOW TO ASSIST NEEDED. AWAITING TO FIND OUT DIALYSIS CLINIC SO CM CAN NOTIFY THEM OF ADMISSION.
--- NOTE | 2019-12-17 15:29 | NUR ---
PT CARE ASSUMED APPROXIMATELY 0700. PT ASSESSMENTS CHARTED. PT MEDICATIONS CHARTED. PT RECIEVED DIALYSIS FROM 0900 TO 1500. PT REFUSED BATH. PT HAS POOR APPETITE. PT REFUSED UROSTOMY/COLOSTOMY CARE.
[2019-12-18] VITALS (19 sets, daily range): BP systolic 96–137; BP diastolic 49–81
--- NOTE | 2019-12-18 04:46 | NUR ---
ASSUMED PT CARE AT 1900. PT IS ALERT AND ORIENTED. NO SIGN OF DISTRESS NOTED. LAYING IN BED. PT REFUSES TO BE REPOSITIONED, FOR COLOSTOMY AND UROSTOMY BAG TO CHECKED WELL. PT IS STABLE. VITAL SIGNS STABLE. ASSESSMENT COMPLETED AND DOCUMENTED. CALL LIGHT WITHIN REACH,. SCHEDULED MEDS ADMINISTERED TO PT. TOLERATED PO INTAKE. CONTINUE TO MONITOR PT. DENIES ANY FURTHUER NEEDS AT THIS TIME.
--- NOTE | 2019-12-18 11:32 | NUR ---
ON-GOING ASSESSMENT: CM RECEIVED CALL FROM MARÍA AT [facility] [place] TO GET STATUS OF PATIENT. PT IS MEDICALLY STABLE FOR DISCHARGE BACK TO FACILITY BUT WAITING ON RESULT OF COVID 19 TESTING. RESULT IS STILL PENDING AT THIS TIME. CM WILL CONTINUE TO FOLLOW TO ASSIST NEEDED.
--- NOTE | 2019-12-18 18:12 | NUR ---
PT CARE ASSUMED APPROX 0700. ASSESSMENT CHARTED. PT DENIES SOA. REPORTS PAIN ONLY WITH DSG CHANGES. REPORTS ADEQUATE PAIN MANAGEMENT. PT REFUSING TURNS. HE DOES NOT REPORT WHEN OSTOMIES DISLODGE BUT DOES NOT PERMIT CHECKS. ORDERS RECEIVED TO MOVE PT OUT OF ICU. CALL CENTER OPERATOR AWARE. WILL AWAIT POTENTIAL TRANSFER NOTICE FROM [facility]. NO DISTRESS NOTED.
--- NOTE | 2019-12-18 18:49 | NUR ---
PT WAS VERY UNCOOPERATIVE DURING WOUND CARE AND CLEAN UP. DSGS ARE APPLIED WITHOUT TAPE AND WITHOUT VISUALIZING THE ENTIRE WOUND BED. PT EDUCATED REGARDING THE POTENTIAL HARM AND INFECTION HE COULD BE CAUSING OR PROLONGING. SAME GOES FOR REPOSITIONING. NEW OSTOMY APPLIANCES INTACT.
--- NOTE | 2019-12-18 21:38 | NUR ---
Report given to Jackelyn, RN and pt moved with all belongings to room 437. Pt in stable condition.
--- NOTE | 2019-12-19 03:28 | NUR ---
PT ARRIVED ON THE UNIT FROM ICU @2300 COVID 19 RESULT 9 NEGATIVE VSS. SUPRAPUBIC CATH INTACT AND UROSTOMY IN PLACE. PT REFUSED TURNS AND ALSO STATED THAT OSTOMY BAGS WERE OKAY. EDUCATED PT ABT CARE AND TO CALL TO EMPTY IT OUT. HYDROCODONE GIVEN FOR PAIN MANAGEMENT. PT IS A PARAPLEGIC. CALL LIGHT IN REACH AND WILL CONT WITH POC TILL EOS.
[2019-12-19 03:30] VITALS: BP 112/65
--- NOTE | 2019-12-19 08:35 | HC ---
[facility] [place] [address] CONSULTATION Name: HILARIO POST Nilo STARK Room #: 437-[facility] IN ..#: [id number] Admission: 12/15/19 Attend Phys: Chata Ybarra MD Discharge: Date of : 77 Report #: [id number] THIS REPORT FOR: cc: [facility] - Family physician unknown SHAVON - Family physician unknown Cholo Dietz MD ~ CC: [facility] unknown Chata Ybarra DATE OF SERVICE: 12/17/2019 CHIEF COMPLAINT: Pelvic pressure ulcerations. HISTORY OF PRESENT ILLNESS: This is a 44-year-old male patient with whom I am very familiar from multiple hospitalizations. He has a history of paraplegia secondary to spina bifida and unfortunately a very long history of blatant noncompliance with recommendations for care. The patient lives in a nursing care facility, long-term, reportedly does not follow recommendations for offloading or basic hygiene. He has been admitted again to the hospital with dry cough, chest pain, shortness of breath for the past 3-4 days. He has not dialyzed. He is admitted to the ICU. He was noted to have a hemoglobin of 6.1 on admission. PAST MEDICAL HISTORY: Positive for end-stage renal disease, on dialysis; spina bifida with neurogenic bladder; suprapubic catheter, status post colostomy and ileostomy; sacral ischial pressure ulcerations; deformities of both lower extremities. ALLERGIES: PENICILLIN, CEPHALOSPORINS, AND LATEX. SOCIAL HISTORY: The patient resides in a nursing care facility. Does not smoke or drink alcohol. MEDICATIONS: Include vitamin C, pantoprazole, zinc sulfate, sodium bicarbonate, Renvela, acetaminophen, famotidine, melatonin, [place]. REVIEW OF SYSTEMS: CONSTITUTIONAL: Positive for fever, but denies chills or weight loss. NEUROLOGICAL: The patient has paraplegia. ENT: The patient denies earache, nasal drainage or sore throat. CARDIOVASCULAR: The patient denies chest pain, palpitations or diaphoresis. PULMONARY: The patient denies cough or shortness of breath. GASTROINTESTINAL: The patient denies nausea, vomiting, diarrhea or abdominal pain. ORTHOPEDIC: The patient is aware of the ulcers on his sacral region. Other systems in a 14-point review of systems are negative. [address] [address] CONSULTATION Name: HILARIO POST Nilo [facility] Room #: [address] [place] [address] [place] [facility]#: [id number] Admission: 12/15/19 Attend Phys: Chata Ybarra MD Discharge: Date of : 77 Report #: [id number] PHYSICAL EXAMINATION: VITAL SIGNS: At this time include temperature is 97.8, pulse 84, respiratory rate 33, blood pressure 116/68. GENERAL: This is a somewhat chronically ill-appearing male patient who appears to be in minimal distress. HEENT: Head normocephalic. Nose and throat clear. NECK: Supple. LUNGS: Diminished. ABDOMEN: Soft. Colostomy noted in place. The sacral pelvic region demonstrates stage 4 pressure ulcers to the ischial tuberosities with moderate fibrin and some eschar. Mild odor is present. LABORATORY DATA: Includes white blood cell count 5.0 with a hemoglobin of 7.1, hematocrit of 21.9. Sodium 137, potassium 4.5, chloride 100, CO2 26, BUN 45, creatinine 7.2, albumin is markedly low at 1.4. CLINICAL IMPRESSION: 1. Bilateral nonhealing stage 4 ischial pressure ulcerations. 2. Advanced debility. 3. Ongoing noncompliance. 4. Severe protein-calorie malnutrition with albumin of 1.4. 5. Spina bifida with paraplegia. 6. Status post diverting colostomy and urostomy. RECOMMENDATIONS: At this point in time, we will recommend a Dakin's moist gauze dressing change. Recommend low air loss mattress, q. 2 hour turning and positioning. He has been noncompliant with turning and repositioning with dressing changes for quite some time. He will need aggressive nutritional support. I have discussed with him that if he does not offload and reposition, there is no hope of wound healing and worsening bone infection will ensue. He has been seen by General Surgery. He is not deemed to be a surgical debridement candidate at this time. We will continue to follow closely. I appreciate being asked to see him in consultation. <ELECTRONICALLY SIGNED> By: Cholo Dietz MD 12/19/19 [id number] Cholo Dietz MD /nt
[2019-12-19 10:31] LABS: HEMATOCRIT 28.2 % (42.0-52.0); HEMOGLOBIN 9.1 gm/dL (14.0-18.0); MCH 28.1 pg (26.0-34.0); MCHC 32.4 g/dL (28.0-37.0); MCV 86.6 fL (80.0-100.0); RBC 3.26 mil/uL (4.50-6.00); RDW 17.3 % (10.5-14.5); WBC 7.4 thou/uL (4.0-11.0)
[2019-12-19 10:39] LABS: CALCIUM 9.4 mg/dL (8.5-10.1); CREATININE 1.9 mg/dL (0.7-1.3)
[2019-12-19 10:43] LABS: POTASSIUM 2.7 mmol/L (3.5-5.1)
--- NOTE | 2019-12-19 10:55 | NUR ---
on-going assessment: JOAN RECEIVED A CALL FROM FLORA AT [facility] ASKING FOR RESULT OF COVID TESTING, JOAN INFORMED HER PT WAS NEGATIVE. SHE REQUEST D/C PAPERWORK BE FAXED TO THEIR CLINIC AND CM FAXED CLINICAL.
--- NOTE | 2019-12-19 13:12 | NUR ---
CARE TEAM INDICATED THAT PT IS TO HAVE DEBRIDEMENT THIS DAY. CARE TEAM INDICATED THAT THEY ANTICPATE THAT PT WILL LIKELY BE MEDICALLY STABLE TO DISCHARGE BACK TO [facility] TOMORROW. [facility] UPDATED OF ANTICIPATED DISCHARGE. CM TO FOLLOW INDICATED WITH DC PLANNING.
--- NOTE | 2019-12-19 14:44 | NUR ---
FAXED CLINICAL UPDATE TO [facility] RECEIVED CONFIRMATION AND LEFT MSG WITH ADM. DP TO FOLLOW.
[2019-12-19 17:00] VITALS: BP 103/63
[2019-12-19 19:20] VITALS: BP 100/54
--- NOTE | 2019-12-19 19:43 | NUR ---
PT RETURNED FROM PACU, SLEEPING. VSS. DRSG TO BUTTOCKS AND R LOWER EXTREM. INTACT. WAS GIVEN CLEARS THEN TOLERATED DINNER TRAY. HYDROCODONE GIVEN FOR PAIN.
--- NOTE | 2019-12-20 03:51 | NUR ---
ASSESSED AT START OF SHIFT, C/O OF PAIN. PAIN MEDS GIVEN SEE EMAR. CLOSTOMY AND UROSTOMY IN PLACE. PT REFUSED TO BE TURNED. PT PARAPALEGIC AND ON BEDREST. LOW AIR LOSS MATRESS IN PLACE. PICC LINE INTACT AND CALL LIGHT IN REACH WILL CONT TO MONITOR TILL EOS.
[2019-12-20 04:05] VITALS: BP 112/62
[2019-12-20 07:20] VITALS: BP 108/65
[2019-12-20] MEDS ORDERED: DOXYCYCLINE HYC50 MG PO (09:44)
--- NOTE | 2019-12-20 13:08 | NUR ---
PT DISCHARGING BACK TO [facility] FAXED DC ORDERS/SUMMARY TO FACILITY SPOKE WITH ANA M IN ADM HE RECEIVED ORDERS AND ARRANGED TRANSPORT BY [facility] FOR 1500 TODAY. NOTIFIED PT'S SISTER (RONEY) OF DC AND TIME OF TRANSPORT. UNIT NOTIFIED AND CHART COPY PER US. RN TO CALL REPORT TO [phone].
--- NOTE | 2019-12-20 13:21 | NUR ---
PT HAD I&D DONE YESTERDAY. CARE TEAM INDICATED HE IS MEDICALLY STABLE TO DC BACK TO [facility] THIS DAY LTC. [facility] TRANSPORT ARRANGED FOR 1500. CHART COPY MADE. ORDERS FAXED. PT'S SISTER IS AWARE AND AGREEABLE. PT'S DIALYSIS CLINIC AWARE. NO OTHER CM INTERVENTION INDICATED. CASE CLOSED.
[2019-12-20 14:27] LABS: CALCIUM 8.7 mg/dL (8.5-10.1); MAGNESIUM 1.8 mg/dL (1.8-2.4); POTASSIUM 3.8 mmol/L (3.5-5.1)
--- NOTE | 2019-12-20 14:28 | NUR ---
PT IS A&OX3, PT'S VS ARE STABLE, PT HAD BILATERAL BUTTOCK DEBRIDEMENT AT 12/19/19, PT HAS PAIN MEDICATION ABOUT 1400PM, PT WILL DC TO SNF TODAY, WOUND DR WILL SEE PT SOON.
--- NOTE | 2019-12-20 20:05 | NUR ---
PT 'S R SC CENTRAL LINE HAS REMOVED BY IR TEAM , RN HAS FINISHED PT'S BUTTOCK WOUND CARE , BUT PT REFUSED RN TO PUT CLEAN BED SHIT, AND REFUSED EMPTY CLOSTOMY BAG, RN HAS GAVING REPORT TO SNF AT 1800PM, PT WAS GOING SNF BY TRANSPORTATION AT 1820PM.
--- NOTE | 2019-12-24 07:19 | HC ---
[facility] [place] [address] CONSULTATION Name: HILARIO POST Nilo STARK Room #: [facility] ..#: [id number] Admission: 12/15/19 Attend Phys: Chata Ybarra MD Discharge: 12/20/19 Date of : 77 Report #: [id number] THIS REPORT FOR: cc: SHAVON - Family physician unknown SHAVON - Family physician unknown Sohail Jerome MD ~ CC: SHAVON unknown Chata Ybarra DATE OF SERVICE: 12/16/2019 REASON FOR CONSULTATION: End-stage renal disease requiring hemodialysis. HISTORY OF PRESENT ILLNESS: This is a 44-year-old male, known from multiple recent hospitalizations at this hospital. We had seen him during May of 2019, August, October and now November of 2019. He has end-stage renal disease and is a chronic hemodialysis patient for a number of years. He also has chronic wounds. He has a history of spina bifida, paraplegia, suprapubic catheter, recurrent urinary tract infections, most of his hospitalizations have been in and out because of the ongoing wounds, which are nearly impossible to treat. He normally dialyzes on a Tuesday, Tuesday, Tuesday basis. He presented to the Emergency Room last evening with concern over a fever at his care center. He was also found to be more anemic. He is very nonspecific as far as his fever. He denies dyspnea or cough. He has some of his chronic pain. He last dialyzed on 12/12/2019. He missed dialysis on 12/14/2019. I can say that after having taken care of him for a while, but he often times will refuse therapies, recommendations, and his is very particular and doing only basically what he wants. Currently, he does not complain of dyspnea. He does not think he is edematous. He follows his own diet, recalls no problems with dialysis. He has had no tami blood loss. He did receive 2 units of packed cells after being in the Emergency Room last night and also received some vancomycin and aztreonam. MEDICATIONS: As listed from the Emergency Room, and I am not sure if this is entirely accurate include pantoprazole, sodium bicarbonate, Renvela as a phosphate binder, famotidine, some vitamins. ALLERGIES: PENICILLIN, CEPHALOSPORINS, AND LATEX. REVIEW OF SYSTEMS: As noted above. PHYSICAL EXAMINATION: GENERAL: A 44-year-old male seen in the Intensive Care Unit. He is awake and responsive. Denies any symptoms. He is playing a game on his phone the entire time when I am trying to talk to him and examined him. VITAL SIGNS: Blood pressure 93/55, heart rate 88, respiratory [place] [id number] CONSULTATION Name: HILARIO POST III Room #: 439-P [facility] IN ..#: [id number] Admission: 12/15/19 Attend Phys: Chata Ybarra MD Discharge: 12/20/19 Date of : 77 Report #: [id number] been afebrile here. Oxygen saturation 94%. HEENT: Unremarkable. NECK: Shows no JVD. CHEST: Clear bilaterally. HEART: Has regular rate and rhythm. ABDOMEN: Has active bowel sounds. EXTREMITIES: He has a left upper arm AV graft in place, which is functional. He has chronic deformities of his lower extremities. I did not examine all of his wounds. LABORATORY DATA: From this morning, sodium 137, potassium 4.5, chloride 100, bicarb 26, BUN 45, creatinine 7.2, glucose 84, AST 16, ALT 15, calcium 8.0, phosphorus 5.8, magnesium 1.7, total protein 6.1, albumin 1.4, hemoglobin up from 6.2-7.1, hematocrit 21.9. White count 5.5, platelets 208,000. Urinalysis shows he has chronic pyuria with greater than 25 white cells as it is chronically infected. ASSESSMENT: 1. End-stage renal disease. Since the patient has not had dialysis for 4 days, I had arranged for dialysis today, but the patient adamantly refuses his dialysis today. He says he only wants it tomorrow, which would be his normal day in spite of having missed 1 dialysis a couple of days ago. Hence, I put in orders for dialysis tomorrow. 2. Anemia, severe. He received transfusion last night. Continue to watch and possibly need more. 3. Chronic wounds. Numerous attempts have been made to work on these in the past. We will allow Wound Care to continue with that. I am not sure is floridly infected. He has no current fever and no leukocytosis. He has been started on aztreonam and vancomycin. His vancomycin dose is too high for an end-stage renal disease patient, so I will cut back on that. 4. Chronic spina bifida. PLAN: 1. I will order dialysis tomorrow. 2. We will continue along in the care of this patient. <ELECTRONICALLY SIGNED> By: Sohail Jerome MD 12/24/19 0719 0922 1058 Sohail Jerome MD /nt
== END 2019-12-20 18:50 | DRG 573 ==
LOC: ER 13:16 → ICU 17:03 → ER 17:36 → EROBS 17:36 → ICU 18:30 → ER 12-18 06:13 → ICU 12-18 06:23 → 4S 12-18 23:00
PROVIDERS: Anesthesiology; Emergency Medicine; Hospitalist; Nurse Practitioner Acute Care; ADMIT Internal Medicine
DX: L89.324 Pressure ulcer of left buttock, stage 4 (principal); N18.6 End stage renal disease; N39.0 Urinary tract infection, site not specified; E46 Unspecified protein-calorie malnutrition; G82.20 Paraplegia, unspecified; Z68.43 Body mass index [BMI] 50.0-59.9, adult; L89.314 Pressure ulcer of right buttock, stage 4; R50.9 Fever, unspecified; D63.8 Anemia in other chronic diseases classified elsewhere; K21.9 Gastro-esophageal reflux disease without esophagitis; Z79.899 Other long term (current) drug therapy; Q05.9 Spina bifida, unspecified; Z79.2 Long term (current) use of antibiotics; Z79.891 Long term (current) use of opiate analgesic; Z88.0 Allergy status to penicillin; Z88.1 Allergy status to other antibiotic agents; Z91.040 Latex allergy status; Z93.3 Colostomy status; Z91.14 Patient's other noncompliance with medication regimen
CPT/HCPCS: 10078; 10195; 10196; 32100; 50010; 50101; 50386; 50403; 57119; 57120; 62110; 62850; 70005; 85076

== ENCOUNTER 2020-07-26 19:31 | Inpatient (IN) | payer OTHER ==
[~2020-07-26] VITALS: Ht 152.4 cm; Wt 96.9 kg
[~2020-07-26 19:31] MED LIST changes: +DOXYCYCLINE HYC50 MG PO; +LEVAQUIN 500 M500 M3 PO; +NORCO 5-325 TA1 EAC1 PO; +OYSTERCAL-D 501 EACH PO; -RENVELA800 MG; +RENVELA800 MG PO
[2020-07-26 19:33] VITALS: BP 79/41
[2020-07-26 20:10] LABS: ABSOLUTE NEUTROPHILS 6.8 thou/uL (1.4-8.2); BASOPHILS 0.5 % (0.0-2.0); EOSINOPHILS 0.3 % (0.0-3.0); LYMPHOCYTES 10.4 % (24.0-44.0); MCH 26.2 pg (26.0-34.0); MCHC 31.1 g/dL (28.0-37.0); MCV 84.4 fL (80.0-100.0); MONOCYTES 5.9 % (1.0-8.0); PLATELET COUNT 246 thou/uL (150-400); POLYS 82.9 % (36.0-66.0); RBC 2.35 mil/uL (4.50-6.00); RDW 19.1 % (10.5-14.5); WBC 8.2 thou/uL (4.0-11.0)
[2020-07-26 20:12] LABS: HEMATOCRIT 19.8 % (42.0-52.0); HEMOGLOBIN 6.2 gm/dL (14.0-18.0)
[2020-07-26 20:18] LABS: CALCIUM 8.5 mg/dL (8.5-10.1); CREATININE 4.5 mg/dL (0.7-1.3)
[2020-07-26 20:19] LABS: MAGNESIUM 1.8 mg/dL (1.8-2.4)
[2020-07-26 20:56] LABS: URINE BLOOD TRACE (Negative); URINE CLARITY TURBID; URINE COLOR BROWN; URINE GLUCOSE-RANDOM* TRACE (Negative); URINE KETONES 1+ (Negative); URINE PROTEIN (DIPSTICK) 3+ (Negative)
[2020-07-26 20:58] LABS: URINE LEUKOCYTES-REFLEX 2+ (Negative); URINE NITRITE-REFLEX POSITIVE (Negative)
[2020-07-26 21:02] LABS: ICTOTEST (BILI CONFIRMATORY) Negative (Negative); SSA (PROTEIN CONFIRMATORY) 3+ (APPROX. 200-500) mg/dL (Negative); URINE BILIRUBIN NEGATIVE (Negative)
[2020-07-26 21:18] LABS: CASTS None Seen /LPF (None Seen); SQUAMOUS None Seen /LPF (0-3)
[2020-07-26 21:19] LABS: BACTERIA-REFLEX >30 Many /HPF (None Seen); TRIPLE PHOSPHATE CRYSTALS 0-3 Few /LPF (None Seen); URINE RBC 0-2 Rare /HPF (0-2)
[2020-07-26 21:23] VITALS: BP 63/31; BP 66/28; BP 68/31; BP 78/45; BP 83/44
[2020-07-26 23:47] LABS: INR 1.3; PROTIME 13.4 Seconds (9.3-11.4)
[2020-07-27 08:56] VITALS: BP 109/70; BP 111/50; BP 85/41
--- NOTE | 2020-07-27 10:43 | NUR ---
THIS PATIENT HAS HAD MULTIPLE LINES IN THE PAST- MOSTLY TUNNELLED LINES. HE HAS A LEFT ARM FISTUAL SO THE RIGHT JUGULAR VEIN WAS SCANNED FOR CENTRAL LINE PLACEMENT. A RIGHT 5F TRIPLE LUMEN CENTRAL LINE WAS ATTEMPTED X3. THE PATIENT IS NONCOMPLIANT AND WILL NOT LAY BACK FOR PLACEMENT OR REPOSITIONING. THE RIGHT JUGULAR VEIN WAS ACCESSED EASILY AND DIALATED BUT MULTIPLE ATTEMPTS TO ADVANCE THE CENTRAL LINE FAILED. THE LINE ADVANCED 5-6CM ONLY WITH NO FLUSH OR BLOOD RETURN. ATTEMPTED A EJ AT THE SITE WELL, PIV LEAKED WITH FLUSH, PROCEDURE AND EJ PLACEMENT ABORTED. SPOKE TO THE LUNCHROOM SUPERVISOR ABOUT UNSUCCESSFUL PLACEMENT
[2020-07-28] VITALS (48 sets, daily range): BP systolic 89–157; BP diastolic 40–70
[2020-07-28] MEDS ORDERED: CIPROFLOXACIN250 M2 PO (02:46)
[2020-07-28] MEDS ORDERED: WARFARIN SODIUM4 MG PO (02:47)
[2020-07-28] MEDS ORDERED: FIBERCON625 M1 PO (03:37)
[2020-07-28] MEDS ORDERED: VITAMIN D310 MC1 PO (03:38)
[2020-07-28] MEDS ORDERED: CALCIUM 500 +1 EAC1 PO (03:41)
[2020-07-28] MEDS ORDERED: COLACE100 MG PO (03:42)
[2020-07-28] MEDS ORDERED: ALLER-EASE180 MG PO (03:46)
[2020-07-28] MEDS ORDERED: HYDROCODON-ACE1 EAC7 PO (03:47)
[2020-07-28] MEDS ORDERED: FLONASE 0.05%50 MCG NASAL (03:47)
[2020-07-28] MEDS ORDERED: ONDANSETRON HCL4 M2 PO (03:48)
[2020-07-28] MEDS ORDERED: MIRALAX17 G1 PO (03:48)
--- NOTE | 2020-07-28 04:50 | NUR ---
WHEN ATTEMPTING TO CLEAN PATIENT AND MOVE TO INPATIENT BED, IT IS NOTED THAT PATIENT HAS NOT BEEN TURNED (PATIENT REFUSES) SINCE ARRIVAL. THE BLUE CHAIR SLING FROM HIS FACILITY AND BLUE EMS BED COVER REMAINED UNDER PATIENT. COPIOUS AMOUNTS OF RANCID, FOUL SMELLING YELLOW, GREEN AND BLACK DRAINAGE SATURATING THE BED UNDERNEATH PATIENT. PATIENT RESISTANT TO BE TURNED IN ORDER TO REMOVE SATURATED DRESSINGS AND REPLACE WITH WET TO DRY BEST POSSIBLE.
--- NOTE | 2020-07-28 05:11 | NUR ---
PATIENT WAS MOVED TO INPATIENT BED. PATIENT WAS RESISTANT TO ANY CARES BEING PROVIDED. HOWEVER, PATIENT HAS LARGE STAGE 4 AND UNSTAGEABLE WOUNDS COVERING THE ENTIRE COCCYX AN BUTTOCKS (BILATERALLY). LARGE STAGE 3-4 WOUNDS TO RIGHT LATERAL THIGH. COPIOUS AMOUNTS OF GREEN, BLACK AND MILKY DRAINAGE. PATIENT WAS COMPLETELY SATURATED IN FOUL SMELLING WOUND DRAINAGE AND AGAIN WAS VERY RESISTANT TO ANY CARES PROVIDED. PATIENT STATED HE DID NOT WANT A BATH. STAFF INSISTED THAT HE BE ROLLED FROM SIDE TO SIDE IN AN ATTEMPT TO CLEAN PATIENT PRIOR TO MOVING TO INPATIENT BED. PATIENT WILL REQUIRE LENGTHY WOUND CARE AND SURGICAL CONSULT FOR THE WOUNDS THAT EXIST TO HIS POSTERIOR SIDE. LARGE AMOUNTS OF ESCHAR AND TUNNELING WOUNDS. WET TO DRY DRESSINGS PLACED BEST POSSIBLE WITH THE DEGREE OF NECROSIS AND AREA OF ROTTING FLESH. PATIENT AGAIN TRYING TO DECLINE CARE AND TRYING TO DECLINE HAVING OSTOMY BAG DRAINED NEEDED BEFORE IT POPS.
--- NOTE | 2020-07-28 07:47 | EKG ---
[facility] [place] [address] ELECTROCARDIOGRAM REPORT Name: HILARIO POST Nilo III Room #: [facility]-P ADM IN M.R.#: [id number] Admission: 07/26/20 Attend Phys: Vivian Miranda MD Discharge: Date of : 77 Report #: [id number] THIS REPORT FOR: cc: FAM - Family physician unknown FAM - Family physician unknown Ric Barajas MD [facility] ~ THIS REPORT FOR: //name// [facility] ED Test Date: 2020-07-26 Test Time: 20:10:38 Pat Name: HILARIO POST Department: Room: [facility] Gender: M Record Changer: EMERY : 1975 Requested By: Salvatore Sevilla Order Number: [id number] MD: Ric Barajas Measurements Intervals [place] Rate: 99 P: 13 TN: 152 QRS: 21 QRSD: 90 T: -19 QT: 358 QTc: 460 Interpretive Statements Sinus rhythm Low voltage Abnormal R-wave progression, early transition Nonspecific ST and T wave abnormality No previous ECG available for comparison Electronically Signed On 07-28-2020 7:47:08 ELECTRICAL PROSPECTING SUPERVISOR by Ric Barajas [email or web address] <ELECTRONICALLY SIGNED> By: Ric Barajas MD, FACC 07/28/20 0747 09 09 Ric Barajas MD, [facility] /EPI
--- NOTE | 2020-07-28 09:00 | NUR ---
PT CAME FROM ER VIA CART ACCOMPANIED BY EXTERMINATION INSPECTOR. PT ON 10 MCG/ MIN LEVOPHED ON ARRIVAL TO ICU. PT CONNECTED TO ICU MONITORS. PT HAS MULTIPLE PRESSURE ULCERS ON ADMISSION. PT HAS COLOSTOMY AND UROSTOMY. PT IS A MWF DIALYSIS. DR. TAM AT BEDSIDE. ALL THE CONSULTS WERE CALLED. CONTINUE TO MONITOR.
--- NOTE | 2020-07-28 09:19 | NUR ---
VAT CONSULTED FOR THIS PT WITH ESRD, A CENTRAL LINE WAS ATTEMPTED BY THE VAT YESTERDAY AND FAILED DUE TO INABILITY TO ADVANCE THE CATHETER. ORDER PLACED FOR IR. ACE ADIVSED
[2020-07-28 10:29] LABS: HEMATOCRIT 27.8 % (42.0-52.0); HEMOGLOBIN 8.7 gm/dL (14.0-18.0); MCH 26.9 pg (26.0-34.0); MCHC 31.2 g/dL (28.0-37.0); MCV 86.2 fL (80.0-100.0); RBC 3.22 mil/uL (4.50-6.00); RDW 18.4 % (10.5-14.5); WBC 14.1 thou/uL (4.0-11.0)
[2020-07-28 10:43] LABS: CALCIUM 8.2 mg/dL (8.5-10.1); MAGNESIUM 1.7 mg/dL (1.8-2.4); POTASSIUM 3.4 mmol/L (3.5-5.1)
[2020-07-28 10:44] LABS: CREATININE 5.7 mg/dL (0.7-1.3)
--- NOTE | 2020-07-28 11:36 | NUR ---
OSTOMY CARE; ASSESSED STOMAS W/ STAFF RNS CAMELIA AND ANGELICA. ALERT, COOPERATIVE, COLOSTOMY POUCH LEAKING, LARGE AMT LOOSE BROWN STOOL, PERISTOMAL ULCER PRESENT BASE OF STOMA, ~1CM X .5CM IN SIZE, AQUACEL AG APPLIED TO ULCER, 2 PIECE THELMA POUCH W/ ADAPT RING, STRONG ODOR FROM UROSOSTOMY STOMA, EDGES LOOSE, NEW POUCH THELMA CUT TO FIT APPLIED, PERISTOMAL SKIN UROSTOMY INTACT, BOTH STOMAS PINK VIABLE BUDDED, SUPPLIES PLACED AT BS RECOMMENDATIONS; CHANGE POUCHES Q 3-5 DAYS AND PRN, THELMA CUT TO FIT, ADAPT RING TO COLOSTOMY STOMA W/ AQUACEL AG TO ULCER. IOS DEVELOPER AWARE
--- NOTE | 2020-07-28 14:06 | NUR ---
chart review. noted pt been here in past. elif lives at [facility]. wound care, dialysis - jennifer Barber-WTeresa. use of wheel chair for mobility. spoke with his sister aldo via phone call. no concerns or needs voice. updates to be sent to [facility]. will cont following as needed for dc needs.
[2020-07-29] VITALS (69 sets, daily range): BP systolic 70–148; BP diastolic 33–86
[2020-07-29 04:49] LABS: HEMATOCRIT 23.1 % (42.0-52.0); HEMOGLOBIN 7.3 gm/dL (14.0-18.0); MCH 27.5 pg (26.0-34.0); MCHC 31.6 g/dL (28.0-37.0); MCV 86.9 fL (80.0-100.0); RBC 2.66 mil/uL (4.50-6.00); RDW 18.3 % (10.5-14.5); WBC 10.8 thou/uL (4.0-11.0)
--- NOTE | 2020-07-29 07:59 | NUR ---
SEE [facility] FOR ASSESSMENT. PT SLEEPING OFF/ON-REQUEST PAIN MED FOR HIP WOUNDS. PT REFUSES MOST CARE-TURN, EMPTYING COLOSTOMY ETC. PT ADAMANENT ABOUT CARE HE DOES/DOES NOT WANT. LEVOPHED INFUSING TO MAP >60. LOW GRADE TEMP 99.2 MAX. SEE [facility] FOR ASSESMENT. CONT PLAN OF CARE
--- NOTE | 2020-07-29 09:56 | NUR ---
To cv lab for line w cv crew,fully monitored.--vw
--- NOTE | 2020-07-29 14:14 | NUR ---
FAXED CLINICAL UPDATE TO [facility] SPOKE WITH MARÍA IN ADM SHE RECEIVED UPDATE.
--- NOTE | 2020-07-29 16:02 | EKG ---
[facility] [place] [address] ELECTROCARDIOGRAM REPORT Name: HILARIO POST III Room #: 245- ADM IN M.R.#: [id number] Admission: 07/26/20 Attend Phys: Vivian Miranda MD Discharge: Date of : 77 Report #: [id number] THIS REPORT FOR: cc: SHAVON - Family physician unknown FAM - Family physician unknown Ole Patrick MD [facility] ~ THIS REPORT FOR: //name// [facility] Test Date: 2020-07-29 Test Time: 15:44:59 Pat Name: HILARIO POST Department: Room: [facility] Gender: M Anesthesiology Resident: RONDA : 1975 Requested By: Johnathan Charles Order Number: [id number] MD: Ole Patrick Measurements Intervals [place] Rate: 51 P: 82 [place]: 211 QRS: 24 QRSD: 94 T: 23 QT: 461 QTc: 425 Interpretive Statements Sinus rhythm MOBITZ I AV BLOCK (WENCKEBACH) Atrial premature complexes Prolonged [place] interval Low voltage, extremity leads Abnormal R-wave progression, early transition Compared to ECG 07/26/2020 20:10:38 ST (T wave) deviation no longer present Electronically Signed On 07-29-2020 16:02:19 CONSTRUCTION CARPENTERS HELPER by Ole Patrick [email or web address] <ELECTRONICALLY SIGNED> By: Ole Patrick MD, FACC 07/29/20 1602 1544 1544 Ole Patrick MD, FAC /EPI
--- NOTE | 2020-07-29 18:39 | NUR ---
PT NOT MOBILIZING IN BED, WOUND CARE REQUIRED RN X3, 50 MINS, NOT FEASIBLE FOR BID. PT PLACED IN OPTIREST MODE. WENT TO IR, RECEIVED A IJ 2 LUMEN TICC. LEVOPHED BEGINNING OF THE SHIFT AT 8MCG, TITRATED DOWN TO 6MCG, PT'S MAP DROPPED TO 50s, LEVO RUNNING AT 7MCG AT THIS TIME MAP AT 89. AFEBRILE. NEW HEART RHYTHM WENCKEBACH IDENTIFIED, ECG OBTAINED. PT ASYMPTOMATIC, RHYTHM FIRST NOTICED AFTER IR WHILE PT SLEEPING, RHYTHM CONTINUING WHEN AWAKE. HR SUSTAINING AT MID 50s, RR CONTINUING AT MID 30s. PT SEEN BY , DR CARRASCO, , . OCCULT STOOL WAS DONE PREVIOUSLY, RULED OUT. NO INDICATION AT THIS TIME
[2020-07-30] VITALS (95 sets, daily range): BP systolic 75–135; BP diastolic 41–69
[2020-07-30 05:49] LABS: ALBUMIN 1.2 g/dL (3.4-5.0); ANION GAP 10 mmol/L (7-16); BUN 30 mg/dL (7-18); CALCIUM 7.8 mg/dL (8.5-10.1); CHLORIDE 99 mmol/L (98-107); CO2 26 mmol/L (21-32); GLUCOSE 142 mg/dL (74-106); MAGNESIUM 1.7 mg/dL (1.8-2.4); POTASSIUM 4.1 mmol/L (3.5-5.1); SGOT 8 U/L (15-37); SGPT < 6 U/L (30-65); SODIUM 135 mmol/L (136-145); TOTAL BILIRUBIN 0.7 mg/dL (0.2-1.0); TOTAL PROTEIN 5.6 g/dL (6.4-8.2)
[2020-07-30 05:53] LABS: CREATININE 3.9 mg/dL (0.7-1.3)
--- NOTE | 2020-07-30 06:53 | NUR ---
PATIENT REMAINS A/OX4. AFEBRILE. HYPOTENSIVE OTHERWISE VSS. REMAINS ON LEVOPHED. REFUSES TO BE TURNED. C/O PAIN. MEDS GIVEN ORDERED. PARTIAL BATH GIVEN. DENIES NEEDS. WILL REPORT TO ONCOMING RN.
--- NOTE | 2020-07-30 11:26 | HC ---
[facility] [place] [address] CONSULTATION Name: HILARIO POST Nilo STARK Room #: [facility] IN [facility].#: [id number] Admission: 07/26/20 Attend Phys: Vivian Miranda MD Discharge: Date of : 77 Report #: [id number] THIS REPORT FOR: cc: SHAVON - Family physician unknown SHAVON - Family physician unknown Elier Dewitt MD ~ DATE OF SERVICE: 07/28/2020 WOUND CARE CONSULTATION PERSONAL PHYSICIAN: None on staff. CHIEF COMPLAINT: Multiple decubitus ulcers. HISTORY OF PRESENT ILLNESS: This is a 45-year-old white male with history of spina bifida and multiple decubitus ulcers who we have cared for several years. The patient is known to be very noncompliant with refusing to have his dressings changed as well as refusing to be repositioned to offload his wounds. The patient most recently was found to have a hemoglobin of 6.6 and was admitted to the hospital for transfusion. We have been asked to follow the patient for his decubitus ulcers. The patient admits the fact that he is still only changing the dressings intermittently and is still not turning and repositioning as we have asked him to in the past. PAST MEDICAL HISTORY: Significant for spina bifida, end-stage renal disease, on hemodialysis, atrial fibrillation, chronic bilateral stage 4 ischial decubitus ulcers as well as a chronic ulceration to the right leg. CURRENT MEDICATIONS: Multiple, I reviewed the patient's medication list. DRUG ALLERGIES: CEPHALEXIN AND PENICILLIN. SOCIAL HISTORY: The patient resides in a care facility. FAMILY HISTORY: Not pertinent to current medical condition. REVIEW OF SYSTEMS: CONSTITUTIONAL: The patient denies fevers or chills. NEUROLOGIC: The patient complains of overall generalized weakness, but no isolated weakness in arms or legs. EYES: No complaints. ENT: No complaints. CARDIAC: The patient has chronic lower extremity edema, but denies chest pain or palpitation. [facility] [address] [place] [address] CONSULTATION Name: SEJALHILARIO Corcoran [facility] Room #: [address] [place] [address]#: [id number] Admission: 07/26/20 Attend Phys: Vivian Miranda MD Discharge: Date of : 77 Report #: [id number] RESPIRATORY: The patient denies shortness of breath, cough or wheezes. GASTROINTESTINAL: The patient denies nausea, vomiting or abdominal pain. GENITOURINARY: The patient denies urgency or frequency. MUSCULOSKELETAL: No complaints. SKIN: The patient has bilateral ischial decubitus ulcers as well as a chronic wound on the right lateral leg. PHYSICAL EXAMINATION: VITAL SIGNS: Temperature is 37.3. Rest of vitals are stable. GENERAL: This is an alert and oriented x 3, pleasant white male who is in absolutely no distress. HEENT: Normocephalic, atraumatic. Mucous membranes are somewhat dry. Pupils are round. Sclerae white. NECK: Without JVD. LUNGS: Clear. HEART: Regular. ABDOMEN: Obese, soft, nontender. Ostomy is in place and functioning. EXTREMITIES: The patient has limited movement of lower extremities bilateral with 2+ bilateral lower extremity edema. Bilateral ischial ulcers are a mix of mostly slough approximately 80% and 20% granulation tissue with a palpable bone. Right lateral wound is 100% slough on the leg. Distal pulses are intact. NEUROLOGIC: Cranial nerves 2-12 are grossly intact. The patient is essentially paraplegic from his spina bifida. LABORATORY AND DIAGNOSTIC DATA: White count 14.1, hemoglobin 8.7. C-reactive protein is 302. Albumin is 1.4. CT scan of the pelvis shows extensive decubitus ulcers with areas of bone destruction consistent with osteomyelitis. IMPRESSION: 1. Bilateral stage 4 ischial decubitus ulcers. 2. Chronic right leg wound. 3. Spina bifida with debility and paraplegia. 4. Protein-calorie malnutrition -- severe with albumin of 1.4. 5. Noncompliance. 6. End-stage renal disease, on hemodialysis. PLAN: We will start the patient on Dakin's solution, wet-to-dry dressings twice daily to all the wounds. The patient will be placed in a low air loss mattress, having turned every 2 hours. We will attempt to maximize the patient's protein supplementation for his renal restrictions diet. [place] [address] CONSULTATION Name: HILARIO POST III Room #: 245-P [facility] IN M.R.#: [id number] Admission: 07/26/20 Attend Phys: Vivian Miranda MD Discharge: Date of : 77 Report #: [id number] physical and occupational therapy for strengthening as the patient is able. Continue all other current medications. <ELECTRONICALLY SIGNED> By: Elier Dewitt MD 07/30/20 1126 1542 [id number] Elier Dewitt MD /nt
--- NOTE | 2020-07-30 15:29 | NUR ---
ASSUMED CARE @ 1115 07/30/20, PT ASSESSMENTS AND VS COMPLETE PER ICU PROTOCOL. DIALYSIS DONE TODAY, 500ML TAKEN OFF. RN CONCERNED ABOUT PROCEDURE TIME, OR CALLED, RN TOLD PT IS NOT ON THE SCHEDULE TODAY, DR LUNA MERCEDES, RN TOLD THAT PROCEDURE WILL MOST LIKELY OCCUR TOMORROW.
[2020-07-31] VITALS (48 sets, daily range): BP systolic 102–141; BP diastolic 48–74
--- NOTE | 2020-07-31 06:25 | NUR ---
PATIENT REMAINS A/O. C/O PAIN. PAINS MEDS GIVEN ORDERED. AFEBRILE. REMAINS ON LECOPHED GTT. REFUSES CARES AT TIMES. REFUSES DRESSIGN CHANGES. FAMILY UPDATED. VSS. DENIES NEEDS. WILL MONITOR AND GIVE
--- NOTE | 2020-07-31 12:13 | NUR ---
0710-ASSUMED CARE OF PT.--VW 0930-PT REFUSING CARE. LEAVE ME ALONE. LYING W EYES CLOSED,IGNORING STAFF.MUCH ENC GIVEN. PT PULLS COVERS OVER HIS HEAD.--VW
[2020-07-31 15:21] LABS: BE(vivo) 0.5 mmol/L (-2 to +3); HCO3 24.7 mmol/L (22.0-26.0); PCO2 38.1 mmHg (35.0-45.0); PO2 69.7 mmHg (80.0-100.0); sO2 94.5 % (92.0-98.0)
[2020-07-31 15:23] LABS: MCH 28.5 pg (26.0-34.0); RBC 1.98 mil/uL (4.50-6.00); RDW 18.3 % (10.5-14.5); WBC 12.6 thou/uL (4.0-11.0)
[2020-07-31 15:25] LABS: HEMATOCRIT 17.7 % (42.0-52.0); HEMOGLOBIN 5.7 gm/dL (14.0-18.0)
[2020-08-01] VITALS (8 sets, daily range): BP systolic 95–152; BP diastolic 52–113
--- NOTE | 2020-08-01 08:12 | HC ---
[facility] [place] [address] CONSULTATION Name: SEJALHILARIO Corcoran III Room #: [facility] IN .R.#: [id number] Admission: 07/26/20 Attend Phys: Vivian Miranda MD Discharge: Date of : 77 Report #: [id number] THIS REPORT FOR: cc: SHAVON - Family physician unknown FAM - Family physician unknown Lakhwinder Avendaño MD ~ REASON FOR CONSULTATION: End-stage renal disease. REASON FOR PRESENTATION: Abnormal labs. HISTORY OF PRESENT ILLNESS: This is a very well-known patient to me. He is a 45-year-old with extensive past medical history including end-stage renal disease, maintained on hemodialysis every Tuesday, Tuesday and Tuesday. He was found to have a hemoglobin value of 6.6 and was sent to the Emergency Room for further evaluation and management. He is known to have atrial fibrillation and is maintained on Coumadin. His most recent INR on was elevated at 8.7. The patient is known to have paraplegia, chronic hypotension, spina bifida, neurogenic bladder, extensive decubitus ulcers with recurrent admissions related to his decubitus ulcers and lower extremities wound. I was asked to assist with the management of the patient's end-stage renal disease. PAST MEDICAL HISTORY: 1. Partial paraplegia. 2. End-stage renal disease, maintained on hemodialysis. 3. Spina bifida. 4. Atrial fibrillation. 5. Chronic sacral decubitus ulcers. 6. Multiple surgical debridements for his buttocks, lower extremity wounds. 7. Left-sided AV graft. SOCIAL HISTORY: No drug, alcohol abuse. He resides in a nursing facility. FAMILY HISTORY: Significant for diabetes mellitus. ALLERGIES: CEPHALEXIN AND PENICILLIN. REVIEW OF SYSTEMS: GENERAL: No fever or chills. CARDIOVASCULAR: No chest pain or palpitation. PULMONARY: No cough or hemoptysis. GASTROINTESTINAL: No nausea or vomiting. MUSCULOSKELETAL: As per the history of present illness. MEDICATIONS: 1. Pantoprazole. [facility] [address] [place] [address] CONSULTATION Name: SEJALHILARIO [facility] Room #: [address] [place] [address]#: [id number] Admission: 07/26/20 Attend Phys: Vivian Miranda MD Discharge: Date of : 77 Report #: [id number] 2. Folic acid. 3. Renvela. 4. Famotidine. 5. Melatonin. PHYSICAL EXAMINATION: GENERAL: Alert, oriented. VITAL SIGNS: Blood pressure is 128/63, pulse rate is 120. VITAL SIGNS: Temperature is 36.9. HEAD AND NECK: No jugular venous distention. CHEST: No crackles. Decreased air entry bilaterally. CARDIOVASCULAR: No rub. ABDOMEN: Soft. There are 2 ostomy bags. LOWER EXTREMITIES: Chronic venous stasis changes with spina bifida changes. Extensive sacral decubitus ulcers, all the way down to the bone by inspection. IMPRESSION AND PLAN: 1. End-stage renal disease. 2. Hypotension with septic shock. 3. Anemia. 4. Chronic decubitus ulcers. 5. Chronic hypertension. 6. Arrangement for the patient to have his usual hemodialysis will be done today. 7. Management of his anemia as per the primary team. 8. Pulmonary was involved in his critical care management. 9. Status post transfusion with hemoglobin up to 8. 10. His sacral decubitus looked very deep on inspections and he will need surgical consultations, wound care consultation. Unfortunately, this is a very bad situation. 11. We will continue to follow during his hospital stay. <ELECTRONICALLY SIGNED> By: Lakhwinder Avendaño MD 08/01/20 0812 0826 1421 Lakhwinder Avendaño MD /nt
[2020-08-01 09:00] LABS: HEMATOCRIT 31.9 % (42.0-52.0); MCH 27.9 pg (26.0-34.0); MCHC 31.5 g/dL (28.0-37.0); MCV 88.5 fL (80.0-100.0); RBC 3.6 mil/uL (4.50-6.00); WBC 14.5 thou/uL (4.0-11.0)
--- NOTE | 2020-08-01 09:17 | NUR ---
WOUND CARE CAME AROUND AND STATED TO RESUME WOUND CARE PER PREVIOUS ORDERS AFTER PT FINISHES WITH DIALYSIS. PT SISTER, ELMER JEAN CALLED, STATED SHE WAS TOLD YESTERDAY THAT WE MAY BE CONSULTING PALLIATIVE CARE PHYSICIAN. SHE WOULD LIKE TO FACETIME OR BE CALLED BY THAT PHYSICIAN. INFORMED HER THAT DR FLOREZ HAD NOT YET BEEN CONSULTED, BUT THAT THIS RN WOULD DISCUSS WITH HOSPITALIST WHEN THEY COME IN.
--- NOTE | 2020-08-01 15:24 | NUR ---
updates sent to [facility]. beatrice called elif sister aldo, she stated i am here visiting. cm letting her visit with her brother. no anticipated dc over the weekend. will cont following as needed for dc needs.
--- NOTE | 2020-08-01 15:53 | NUR ---
PT SISTER, RONEY HERE, STATES THAT MERT PAYNE AND RONEY HAVE SPOKEN ON SPEAKER PHONE AND ARE READY TO PROCEED WITH DNR AND WHEN FAMILY GETS HERE TO CHANGE TO COMFORT CARE. RONEY ASKED TO SPEAK WITH DR ORTEGA, HE CALLED AND SPOKE WITH HER. ORDER FOR DNR RECEIVED, ORDERS FOR COMFORT CARE TO BE RECEIVED WHEN FAMILY DECIDES ON A TIME. HOLLY FROM HERE, SISTER SIGNED OUT OF HOSPITAL DNR PAPER WELL. RONEY SPEAKING WITH SISTERS NOW ARRANGING TIME TO ARRIVE.
--- NOTE | 2020-08-01 16:18 | NUR ---
pt sister emelina called, she stated she lives in [place], she wanted to know if she would be able to visit this evening or needed to wait until the morning, informed her that the intervention manager stated no one would be able to get in after 7 pm so tomorrow would be better. she is going to get in touch with aldo and they will let us know
--- NOTE | 2020-08-01 17:09 | NUR ---
FAXED CLINICAL UPDATE TO [facility] RECEIVED CONFIRMATION AND LEFT MSG WITH ADM.
--- NOTE | 2020-08-01 17:26 | NUR ---
PT REFUSING TO DO DRESSING CHANGES, REFUSING TO LET THIS RN EMPTY COLOSTOMY OR CHANGE GOWN THAT IS DRENCHED IN SWEAT. PT JUST WANTS TO BEND OVER IN BED, REFUSING TO EAT DINNER
[2020-08-02] VITALS (8 sets, daily range): BP systolic 105–157; BP diastolic 46–86
--- NOTE | 2020-08-02 06:19 | NUR ---
PATIENT REMAINS A/O. DENIES SOA, N/V. C/O PAIN. PAIN MEDS GIVEN ORDERED. REFUSE TURN AND CARES. REMAINS ON LEVOPHED GTT. AFEBRILE. HYPOTENSIVE OTHERWISE VSS. DENIES NEEDS. WILL KEEP MONITORING.
--- NOTE | 2020-08-02 13:40 | NUR ---
REPORT TAKEN FROM AMBERLY/ICU/RN. PT IN ROOM 213. PT RESTING COMFORTABLY IN BED. NO PAIN/CP/COMPLAINTS AT THIS TIME. VSS. BP WNL. NO S/SX OF DISTRESS. CALL LIGHT IN REACH. WILL CONTINUE TO MONITOR.
--- NOTE | 2020-08-02 17:13 | NUR ---
ASSUMED CARE OF PT AT 0700, PT IS A/O TIMES 15 AND A GCS OF 15 AT TIME OF TRANSFER. WOUND CARE DRESSING DONE ON THE PATIENT. PT HAS BEEN AFIBRILE. PT C/O PAIN TO WOUND KOJO. VSS. PT WITH XFER TO CCU. REPORT CALLED AND GIVEN TO ACCEPTING NURSE. PT TAKEN AND SETTLED DOWN IN ROOM. FAMILY IN ROOM AND NOTIFIED ON TRANSFER.
--- NOTE | 2020-08-03 00:53 | NUR ---
Care assumed of patient at 1915: Patient seated in bed at start of shift. Patient alert and oriented x4. Patient withdrawn, covering head with sheet several times during assessment, avoidant. Dressing changes completed to biltaeral lower extremities, sacrum, bilateral ischial tuberosities. Patient frustrated about dressing change but allowed staff x2 to complete them. Refuses to reposition in bed. Seated upright in bed on buttock. Education completed, patient states "I'm fine". Nephrostomy present to left lower quad. Colostomy present to right upper quad. Double lumen to right subclavian. Dialysis fistula to left arm. Requested and provided PRN Hydrocodone and PRN Reglan. Receiving IV abx, otherwise saline lock. Patient resting in bed with eyes closed at this time.
[2020-08-03 04:45] VITALS: BP 118/57
[2020-08-03 08:50] VITALS: BP 125/66
[2020-08-03 11:30] VITALS: BP 101/52
[2020-08-03 15:30] VITALS: BP 110/54
--- NOTE | 2020-08-03 16:46 | NUR ---
ASSUMED CARE AT CHANGE OF SHIFT. ALERT X4, FLAT AFFECT, PAIN AND NAUSEA MANAGED WITH PRN MEDICATIONS. DRESSING CHANGE TO WOUNDS PER ORDERS. ENCOURAGE REPOSTIONING. POOR APPETITE. ENCOURAGED PT TO DRINK SUPPLEMENT HOWEVER PT REFUSED VOICING IT MAKES HIM NAUSOUS. PERSONAL ITEMS IN REACH.CALLS FOR ASSITANCE. SCHEDULED MEDICATIONS GIVEN PER ORDERED.
[2020-08-03 20:10] VITALS: BP 118/63
[2020-08-04 04:45] VITALS: BP 128/73
--- NOTE | 2020-08-04 06:03 | NUR ---
ASSESSED AT START OF SHIFT 1900. PT IN BED C/O PAIN 6/10 MANAGED BY PO HYDROCODONE. PT VOICED HAVING TROUBLE SLEEPING. ONCALL HEATING EQUIPMENT INSTALLER CALLED AND ORDERS RECEIVED FOR MELATONIN. COLOSTOMY INTACT NO LEAK. ENCOURAGED PO FLUIDS AND TURNS. PT SITS UP IN BED. REFUSED DRESSING CHANGE THIS SHIFT EDUCATION PROVIDED. FALL PREC IN PLACE. CALL LIGHT AT REACH HYDROCODONE GIVEN FOR PAIN RELIEF. WILL CONT TO MONITOR.
[2020-08-04 08:00] VITALS: BP 120/60
--- NOTE | 2020-08-04 09:13 | NUR ---
OSTOMY CARE; COLOSTOMY POUCH INTACT, NO LEAKAGE, CHANGED YESTERDAY, UROSTOMY POUCH LOOSE EDGES, NEW POUCH APPLIED THELMA 2PIECE SYSTEM CUT TO FIT, CONNECTED TO DEP DRAINAGE, YELLOW SLIGHTLY CLOUDY URINE NOTED, PERISTOMAL SKIN INTACT, ALERT, COOPERATIVE, SUPPLIES PLACED AT BS RECOMMENDATIONS; CONT POC,CHANGE POUCHES Q 3-5 DAYS AND PRN, EMPTY PRN MANAGER REVIEW AWARE
[2020-08-04 11:45] VITALS: BP 101/62
[2020-08-04 15:40] VITALS: BP 110/66
--- NOTE | 2020-08-04 17:06 | PATH ---
[facility] [place] [address] PATHOLOGY RPT PROCEDURE Name: GOYO BLANCO III Room #: 213-P ADM IN M.R.#: [id number] Admission: 07/26/20 Date of : 77 Discharge: Report #: [id number] Path Case #: [id number] [facility] Accession Number: [id number] . 01 Material submitted: . PART A: buttock - LEFT BUTTOCK DECUBITUS ULCER TISSUE. Modifiers: left PART B: sacrum - SACRAL BONE . 01 Clinician provided ICD-10: A41.9 N18.6 . 01 Clinical history: . HYPOTENSION, DECUB, ULCERS, UTI, ANEMIA . 02 Diagnosis: A. Left buttock decubitus tissue, debridement: - Extensive grangrenous necrosis and fibrinoid degeneration in addition to fat necrosis as well as inflammation. . B. Sacral bone, debridement: - Fragments of bone with acute osteomyelitis as well as osteonerosis. - Fragments of fibrovascular connective tissue with marked acute inflammation as well as fibrinoid degeneration. (IUV:radha; 08/04/2020) QMS 08/04/2020 1309 Local . 02 Electronically signed: . Sakshi Shepherd MD, Pathologist NPI- [id number] . 01 Gross description: . A. The specimen is received in formalin, labeled "Goyo Blanco III, left buttock decubitus ulcer tissue". Will received is a large segment of sam-brown necrotic-appearing skin with attached underlying soft tissue measuring 30.4 x 5.3 x 4.1 cm in greatest dimensions. The specimen is submitted representatively in cassette A1. . B. The specimen is received in formalin, labeled "Goyo Blanco III, sacral bone". Received are two segments of white-ritter fibrous tissue with a slight amount of attached bone measuring 2.5 x 1.8 x 0.5 cm in aggregate dimensions. The specimen is submitted representatively in cassette B1, following light decalcification. (CAA; 08/01/2020) QA/[facility] 08/01/2020 1426 Local . 02 Pathologist provided ICD-10: [address] [address] PATHOLOGY RPT PROCEDURE Name: GOYO BLANCO III Room #: 213-P [facility] [place] ..#: [id number] Admission: 07/26/20 Date of : 77 Discharge: Report #: [id number] Path Case #: [id number] I96, 6.28, M87.88 . 02 CPT . [id number], [id number], [id number] Specimen Comment: A courtesy copy of this report has been sent to [phone], [phone]- Specimen Comment: [phone] Specimen Comment: Report sent to / DR WHITE Performed at: [address] [facility] [address], [place], [place] [id number] MD Joe Keane MD Phone: [phone] Performed at: [address] [facility] [id number] MD Sakshi Shepherd MD Phone: [phone]
--- NOTE | 2020-08-04 19:25 | NUR ---
RECEIVED PT'S CARE AROUND 0715; PT. ON BED; RESTING WITH EYES CLOSED; EQUAL CHEST RISING; SB ON THE MONITOR; DURING AM ASSESSMENT REQUESTED PRN PAIN MEDICATION; NOT DUE; AM MEDICATIONS GIVEN; REQUESTED WOUND CARE AFTER TAKING PAIN MEDICATION; [employer] [facility]; PER DR. ROMAN PT. NOT ABLE TO HAVE ANOTHER I & D; DISCUSSED WITH PT; CONSULT DR. FLOREZ FOR POSSIBLE COMFORT CARE; DIALYSIS DURING THE AFTERNOON; C/O NAUSEA; NO PRN MEDICATION; PHYSICIAN PAGED; EARLY PANTOPRAZOLE GIVEN; ORDERS RECEIVED; RE-ASSESSMENT PT. CALM; RESTING NO C/O NAUSEA; PER DIALYSIS NURSE DIALYSIS FINISHED 30 MINS EARLY DUE TO PT. REQUESTED AND PHYSICIAN AGREED; 2 L 73ML FLUID PULLED; WOUND CARE PERFORMED AROUND 1700; SB ON THE MONITOR WHILE SLEPPING; SR ON THE MONITOR WHILE AWAKE; ASSESSMENT CHARGED; FOLLOWING POC; PASSED ON REPORT;
[2020-08-04 20:14] VITALS: BP 117/65
--- NOTE | 2020-08-05 04:28 | NUR ---
Assumed pt care at 1900. Pt is alert and oriented but is forgetful. No sign of distress noted. Severe wound noted. Fall precaution in place. Assessment completed and documented. Pt refused turns and wound change. Scheduled meds administered to pt. Plans for palliative care discussed with patient by physician. No acute event overnight. Continue to monitor. No further needs at this time.
[2020-08-05 06:11] VITALS: BP 94/54
[2020-08-05 09:16] VITALS: BP 93/48
--- NOTE | 2020-08-05 12:31 | NUR ---
WOUND CONSULT; THE PATIENT HAS MULTIPLE PRESSURE ULCERS TO THE ENTIRE BILATERAL BUTTOCKS, SACRAL AREAS. PURULENT DRAINAGE. THE PATIENT IS EMOTIONALLY DISCONNECTED. NOES NOT SEEM TO CARE ABOUT ANYTHING. THE WOUNDS ARE LESS ODOROUS, BUT PURLENCE IS PRESENT. THE DRESSING USES 12-15 ABD PADS. RECOMMENDATIONS; SEE MD NOTE
[2020-08-05 15:00] VITALS: BP 99/44
[2020-08-05 15:20] LABS: HEMATOCRIT 26.2 % (42.0-52.0); HEMOGLOBIN 8.3 gm/dL (14.0-18.0); MCH 27.9 pg (26.0-34.0); MCHC 31.6 g/dL (28.0-37.0); MCV 88.3 fL (80.0-100.0); RBC 2.97 mil/uL (4.50-6.00); RDW 18.5 % (10.5-14.5); WBC 12.2 thou/uL (4.0-11.0)
--- NOTE | 2020-08-05 16:39 | NUR ---
ASSUMED CARE AT CHANGE OF SHIFT. ALERTX4 REQUIRES REINFORCMENT. FROM [facility], WOUND CARE PROVIDED PER ORDERS. Q2HR REPOSITION TOLERATED. POOR APPETITE. SISTER KAVON CALLED AND SPOKE WITH DR FLOREZ. NO PLANS TO DC PER CM. PT TRANSFERED TO 454. REPORT GIVEN TO JOSE FRANCISCO ACE.
--- NOTE | 2020-08-05 17:33 | NUR ---
FAXED REFERRAL TO [facility] RECEIVED CONFIRMATION WILL F/U WITH FACILITY IN THE AM.
--- NOTE | 2020-08-05 17:45 | NUR ---
Spoke with Dr Kelsey regarding him speaking with sister. He reports he has spoken with patient who deferred to sister and sister not prepared for Hospice at this time. Plan return to [facility] and cont conversation. Sp with admissions at [facility] and updated of discussions. They reports they also have been discussing hospice with patient and sister and will continue to do so upon return.
--- NOTE | 2020-08-05 18:14 | NUR ---
PATIENT ARRIVED TO THE UNIT FROM [facility] AT 1645HRS. PATIENT IS ALERT, AND ORIENTED X 2-3 ABLE TO VOICE NEED, BUT SEEM TO BE LOST IN MIDDLE OF CONVERSATION. LCTA, RESPIRATION EVEN, UNLABORED. BS+X4, ABD SOFT, NON-TENDER TO TOUCH. APPETITE IS POOR, PATIENT BARELY TOUCHED HIS SUPPER. BOTH UROSTOMY/COLOSTOMY BAG IN PLACE. DRESSING IN PLACE TO ALL WOUND AREA. PATIENT DENIES PAIN AT THIS TIME. PATIENT CURRENTLY IN BED WATCHING TV. NO SIGN OF ACUTE DISTRESS NOTED, CALL LIGHT IN REACH, WILL CONTINUE TO MONITOR.
[2020-08-05 18:33] VITALS: BP 114/69
[2020-08-05 19:57] VITALS: BP 105/66
[2020-08-06 05:41] VITALS: BP 94/59
--- NOTE | 2020-08-06 07:52 | NUR ---
Assumed pt care at 1900. A/OX3 with flat affect. VSS.C/o pain to buttocks, medicated per EMAR with relief reported. Pt ordered pizza from outside hospital at HS and ate 75% of it. Wound care to R/L ischium tuberosity completed at HS w/o any problems. Pt declines to be repositioned, on a ERICKSON mattress. Has a R subclavian double lumen PICC patent, ileoconduit/colostomy in place and patent. Sinus nuno on telemetry.
[2020-08-06 10:07] VITALS: BP 111/66
--- NOTE | 2020-08-06 13:49 | NUR ---
CARE TEAM INDICATED THAT PT MAY BE MEDICALLY STABLE TO DSICHARGE BACK TO [facility] TOMORROW TUESDAY 08/07. COVID TEST DONE THIS DAY. CM CALLED AND LEFT VM WITH ADMISSIONS AT THE FACILITY TO NOTIFY THEM. CM TO FOLLOW INDICATED WITH DC PLANNING.
[2020-08-06 14:45] VITALS: BP 102/52
[2020-08-06 19:45] VITALS: BP 11/69
--- NOTE | 2020-08-06 20:06 | NUR ---
Assumed pt care this am, went on dialysis runnning sinus nuno on the monitor. Non compliant, refused to eat meals and orders out to have it delivered. Refused Q2 turns and chooses the time he wants wound care to be done. Dialysis was done mid afternoon and pulled 400cc. POC followed, refuses plan of care endorsed to the night nurse.
--- NOTE | 2020-08-07 06:34 | NUR ---
VSS-AFEBRILE. REFUSED TURNS. DRESSING CHANGE COMPLETED, LARGE AMOUNT OF FOUL SMELLING SEROSANGUINEOUS DRAINAGE. TOLERATING SNACKS WITH NO REPORTED NAUSEA. TURNED AND OFFERED FLUIDS EVERY TWO HOURS FOR COMFORT.
[2020-08-07 07:29] VITALS: BP 119/66
[2020-08-07] MEDS ORDERED: MEROPENEM500 MG IV (10:14)
[2020-08-07] MEDS ORDERED: VANCOMYCIN500 MG/VIA IV (10:14)
[2020-08-07] MEDS ORDERED: MIDODRINE HCL 55 M1 PO (10:14)
[2020-08-07] MEDS ORDERED: HEPARIN SO5000 UNIT/ SUBQ ×2 (10:14→10:43)
[2020-08-07] MEDS ORDERED: LITE COAT ASPI325 MG PO (10:43)
--- NOTE | 2020-08-07 15:02 | NUR ---
CARE TEAM INDICATED THAT PT IS MEDICALLY STABEL TO DISCHARGE BACK TO [facility] THIS DAY. CLINICAL UPDATE HAD BEEN SENT AND CM NOTIFIED MARÍA IN ADMISSION. ORDERD FAXED TO [facility]. CHART COPY MADE. REPORT TO BE CALLED BY NURSE. [facility] ARRANGED FOR 1600. CM NOTIFIED PT'S SISTERS. PT TO RESUME OP DIALYSIS AT [facility] TOMORROW. NO OTHER CM INTERVENTION INDICATED. CASE CLOSED.
--- NOTE | 2020-08-07 16:29 | NUR ---
ASSUMED CARE OF PATIENT THIS AM. ASSESSMENT CHARTED. MEDS ADMINISTERED PER NOV. VSS. PATIENT IS A&OX2-3 VERY FLAT. IS Q2 TURNS BUT REFUSES TURNS AND MOST CARES. REFUSED WOUND CARE THIS AM. PICTURE NEEDED TO BE COMPLETE BEFORE DISCHARGE AND PATIENT CONSENTED BUT WAS RELUCTANT. REPORT WAS CALLED OVER TO MALKA SHELDON. NUMBER TO UNIT WAS GIVEN IF PATIENT HAS ANY OTHER QUESTIONS. PATIENT EXPRESSED NO NEEDS PRIOR TO DICHARGE. WOUND DRESSINGS ON BOTTOM C/D/I. DISCHARGED W WHEELCHAIR.
--- NOTE | 2020-08-07 17:03 | NUR ---
I AGREE WITH NURSING ASSESSMENT AND NURSING NOTE DONE BY CHRYSTAL/DISH MACHINE OPERATOR.
== END 2020-08-07 17:04 | DRG 853 ==
LOC: ER 19:31 → EROBS 23:45 → ICU 23:45 → 2N 08-02 12:16 → 4W 08-05 16:39
PROVIDERS: Anesthesiology; Emergency Medicine; Nurse Practitioner; Nurse Practitioner Family; ADMIT Hospitalist; ATTEND Hospitalist
DX: A41.9 Sepsis, unspecified organism (principal); L89.324 Pressure ulcer of left buttock, stage 4; L89.314 Pressure ulcer of right buttock, stage 4; L89.104 Pressure ulcer of unspecified part of back, stage 4; L89.154 Pressure ulcer of sacral region, stage 4; N18.6 End stage renal disease; R65.21 Severe sepsis with septic shock; E43 Unspecified severe protein-calorie malnutrition; N39.0 Urinary tract infection, site not specified; D62 Acute posthemorrhagic anemia; G82.20 Paraplegia, unspecified; E87.1 Hypo-osmolality and hyponatremia; M86.8X8 Other osteomyelitis, other site; M00.9 Pyogenic arthritis, unspecified; Z68.41 Body mass index [BMI] 40.0-44.9, adult; I48.91 Unspecified atrial fibrillation; Z20.828 Contact with and (suspected) exposure to other viral communicable diseases; K21.9 Gastro-esophageal reflux disease without esophagitis; I95.9 Hypotension, unspecified; N31.9 Neuromuscular dysfunction of bladder, unspecified; E87.6 Hypokalemia; B95.2 Enterococcus as the cause of diseases classified elsewhere; I10 Essential (primary) hypertension; B96.4 Proteus (mirabilis) (morganii) as the cause of diseases classified elsewhere; Z79.01 Long term (current) use of anticoagulants; Z88.0 Allergy status to penicillin; Z88.8 Allergy status to other drugs, medicaments and biological substances; Z91.040 Latex allergy status; Z83.3 Family history of diabetes mellitus; Q05.9 Spina bifida, unspecified; Z93.3 Colostomy status; Z91.14 Patient's other noncompliance with medication regimen
CPT/HCPCS: 10045; 10078; 10081; 32100; 50101; 50386; 57091; 57119; 57120; 62110; 62900; 85076